=== PATIENT | male | born 1955 | race Caucasian/White ===

== ENCOUNTER → 2019-01-22 10:38 | Outpatient (CLI) | payer MEDICARE, SELFPAY ==
--- NOTE | 2019-01-22 10:42 | DI.RAD.S_ITS ---
PROCEDURE: XR CHEST 2V INDICATIONS: copd TECHNIQUE: 2 views of the chest were acquired. COMPARISON: [facility], CHEST 1 VIEW, 02/28/2016, 14:49. [facility], CHEST 2 VIEW, 01/24/2016, 2:36. FINDINGS: Surgical changes and devices: None. Lungs and pleura: Lungs are abnormal with large lung volumes and a chronic mild interstitial prominence stable over time. No pleural effusions or pneumothorax. Mediastinum: Mediastinal contours are normal. Heart size is normal. Bones and chest wall: No suspicious bony abnormalities. Soft tissues appear unremarkable. IMPRESSION: COPD, stable over time, presumed prior smoking history given the chronic mild interstitial prominence pattern present. Dictated by: Alex Culver M.D. on 01/22/2019 at 11:25 Approved by: Alex Culver M.D. on 01/22/2019 at 11:34
[2019-01-22 12:40] LABS: Alanine Aminotransferase 40 IU/L (21-72); Albumin 4.5 g/dL (3.5-5.0); Albumin Globulin Ratio 1.3 (1.0-2.8); Alkaline Phosphatase 102 U/L (38-126); Aspartate Aminotransferase 39 IU/L (17-59); Bilirubin Total 0.6 mg/dL (0.2-1.3); Blood Urea Nitrogen 20 mg/dL (9-20); Calcium 8.6 mg/dL (8.4-10.2); Carbon Dioxide 25 mmol/L (22-32); Chloride 100 mmol/L (98-107); Estimated Glomerular Filt Rate > 60.0 mL/min (>60); Globulin 3.6 g/dL (1.7-4.1); Glucose 90 mg/dL (80-110); Potassium 4.7 mmol/L (3.4-5.1); Sodium 136 mmol/L (137-145); Total Protein 8.1 g/dL (6.3-8.2)
[2019-01-22 12:43] LABS: B Type Natriuretic Peptide < 100 (<100)
[2019-01-22 12:44] LABS: HEMOLYSIS 131 (0-50)
== END ==
PROVIDERS: PCP Internal Medicine; Visit Provider Internal Medicine
DX: J44.9 Chronic obstructive pulmonary disease, unspecified (principal); Z68.36 Body mass index [BMI] 36.0-36.9, adult
CPT/HCPCS: 36415; 71046; 80053; 83880

== ENCOUNTER → 2020-05-05 10:30 | Outpatient (CLI) | payer MEDICARE, MEDICAID, SELFPAY ==
[2020-05-05 11:57] LABS: Alanine Aminotransferase 45 IU/L (<50); Albumin 4.3 g/dL (3.5-5.0); Albumin Globulin Ratio 1.3 (1.0-2.8); Alkaline Phosphatase 142 U/L (38-126); Aspartate Aminotransferase 45 IU/L (17-59); Bilirubin Total 0.7 mg/dL (0.2-1.3); Blood Urea Nitrogen 21 mg/dL (9-20); Carbon Dioxide 31 mmol/L (22-32); Chloride 100 mmol/L (98-107); Cholesterol 212 mg/dL (140-199); Estimated Glomerular Filt Rate > 60.0 mL/min (>60); Globulin 3.3 g/dL (1.7-4.1); Glucose 106 mg/dL (80-110); HDL Cholesterol 30 mg/dL (40-60); HEMOLYSIS < 15 (0-50); LDL Cholesterol Calculated 150 mg/dL (<100); Potassium 4.5 mmol/L (3.4-5.1); Sodium 138 mmol/L (137-145); Total Protein 7.6 g/dL (6.3-8.2); Triglycerides 159 mg/dL (35-150)
[2020-05-05 12:29] LABS: Prostate Specific Antigen Scrn 0.658 ng/mL (0.1-4.0)
== END ==
PROVIDERS: PCP Internal Medicine; Referring Provider Internal Medicine; Visit Provider Internal Medicine
DX: Z12.5 Encounter for screening for malignant neoplasm of prostate (principal); F17.200 Nicotine dependence, unspecified, uncomplicated; I10 Essential (primary) hypertension; J44.9 Chronic obstructive pulmonary disease, unspecified; M54.5 Low back pain; Z68.36 Body mass index [BMI] 36.0-36.9, adult
CPT/HCPCS: 36415; 80053; 80061; G0103

== ENCOUNTER 2020-07-21 12:10 | Inpatient (IN) | payer MEDICARE, MEDICAID, SELFPAY ==
[2020-07-21] VITALS (19 sets, daily range): BP systolic 127–229; BP diastolic 50–135; PULSE 96–122; RESP 20–45; TEMP 36.8–37; O2SAT 87–97; BMI 36.0
--- NOTE | 2020-07-21 12:35 | DI.RAD.S_ITS ---
PROCEDURE: XR CHEST 2V INDICATIONS: shortness of breath TECHNIQUE: 2 views of the chest were acquired. COMPARISON: [facility], , CHEST 1 VIEW, 02/28/2016, 14:49. [facility], , XR CHEST 2V, 01/22/2019, 10:43. FINDINGS: Surgical changes and devices: None. Lungs and pleura: Irregular opacity in the right lower lobe. Small right pleural effusion. No pneumothorax. Mediastinum: Mediastinal contours are not significantly changed. Heart size is unchanged. Bones and chest wall: No suspicious bony abnormalities. Soft tissues appear unremarkable. IMPRESSION: Right lower lobe airspace opacity most suspicious for pneumonia. Recommend follow-up to resolution. Small right pleural effusion. Dictated by: Dominguez Pulido M.D. on 07/21/2020 at 13:17 Approved by: Dominguez Pulido M.D. on 07/21/2020 at 13:19
--- NOTE | 2020-07-21 12:42 | PC.NURSE ---
placed on oxygen at 2l nc. sats 94percent
[2020-07-21 12:56] LABS: Add Manual Diff / Slide Review NO; Basophils Absolute Auto 100 /uL (0-100); Basophils Percent Auto 0.5 % (0-2); Eosinophils Absolute Auto 100 /uL (0-450); Eosinophils Percent Auto 1.4 % (2-4); Hematocrit 46.4 % (41-53); Hemoglobin 15.4 g/dL (13.5-17.5); Lymphocytes Absolute Auto 1200 /uL (1100-4500); Lymphocytes Percent Auto 12.4 % (25-40); Mean Corpuscular HGB Conc 33.2 % (30-36); Mean Corpuscular Hemoglobin 27.4 PG (26-34); Mean Corpuscular Volume 82.6 fL (80-100); Monocytes Absolute Auto 1000 /uL (0-900); Monocytes Percent Auto 9.6 % (3-14); Neutrophils Absolute Auto 7600 /uL (1500-7000); Neutrophils Percent Auto 76.1 % (50-75); Platelet Count 185 X10^3/uL (150-400); Red Blood Cell Count 5.61 X10^6/uL (4.5-5.9); Red Cell Distribution Width 16.1 % (11.6-14.8); White Blood Cell Count 9.9 X10^3/uL (4.5-11.0)
[2020-07-21 13:01] LABS: Lactate (Lactic Acid) 2.2 mmol/L (0.7-2.1)
[2020-07-21 13:01] LABS: COVID19 -Nasal RAPID Negative (Negative)
[2020-07-21 13:02] LABS: Alanine Aminotransferase 195 IU/L (<50); Albumin 3.9 g/dL (3.5-5.0); Alkaline Phosphatase 504 U/L (38-126); Aspartate Aminotransferase 166 IU/L (17-59); BUN Creatinine Ratio 23.5 (6-22); Bilirubin Total 1.4 mg/dL (0.2-1.3); Blood Urea Nitrogen 24 mg/dL (9-20); Calcium 9.3 mg/dL (8.4-10.2); Carbon Dioxide 29 mmol/L (22-32); Chloride 100 mmol/L (98-107); Estimated Glomerular Filt Rate > 60.0 mL/min (>60); Globulin 3.8 g/dL (1.7-4.1); Glucose 139 mg/dL (80-110); HEMOLYSIS < 15 (0-50); Potassium 4.5 mmol/L (3.4-5.1); Sodium 135 mmol/L (137-145); Total Protein 7.7 g/dL (6.3-8.2)
[2020-07-21] MEDS: ALBUTEROL 2.5 MG/3 ML NEB (ADULT) INH ×4 (13:15→22:15)
[2020-07-21] MEDS: methylPREDNISolone 125 MG/2 ML VIAL IV (13:20)
[2020-07-21 13:24] LABS: Creatine Kinase 94 U/L (55-170)
--- NOTE | 2020-07-21 13:36 | ED_ITS ---
HPI - SOB/Dyspnea General Chief Complaint: Shortness of Breath/Dyspnea Stated Complaint: COPD Time Seen by Provider: 07/21/20 12:52 Source: patient Mode of arrival: Family Vehicle Limitations: no limitations History of Present Illness HPI Narrative: Patient is a 64-year-old male history of COPD presenting with 8 days of increasing shortness of breath and chest tightness. He says it has progressively gotten worse he denies any fever or chills but does have productive cough. He feels like he cannot get a deep breath in he has been using his inhalers at home without any relief. MD Complaint: shortness of breath and cough Related Data Previous Rx's Medication Instructions Recorded albuterol sulfate 3 ml INH Q4HP PRN #120 ea 05/10/16 ibuprofen 600 mg PO TIDP PRN #150 tab 02/08/19 lisinopril 40 mg tablet 40 mg PO QDAY #90 tab 02/07/20 albuterol sulfate 90 mcg/actuation 2 puff INHALATION Q2-3H PRN #17 03/13/20 aerosol inhaler gram ipratropium 20 mcg-albuterol 100 2 puff INHALATION QID #12 gram 03/13/20 mcg/actuation mist for inhalation hydrocodone 5 mg-acetaminophen 325 1 - 2 tab PO Q4HP PRN #210 tab 05/01/ mg tablet Allergies Allergy/AdvReac Type Severity Reaction Status Date / Time No Known Drug Allergies Allergy Unknown Verified 07/21/20 12:39 [NO KNOWN DRUG ALLERGIES] Review of Systems Review of Systems ROS Unobtainable: All systems reviewed & are unremarkable except as noted in HPI and below Constitutional Constitutional: Reports body ache(s), Reports chills and Denies frequent falls ENT Ears, Nose, Mouth, and Throat: Denies dizziness Cardiovascular Cardiovascular: Reports as per HPI Respiratory Respiratory: Reports as per HPI Gastrointestinal Gastrointestinal: Denies abdominal pain, Denies change in bowel habits, Denies diarrhea, Denies nausea and Denies vomiting Musculoskeletal Musculoskeletal: Denies back pain, Denies myalgias and Denies numbness Integumentary/Breasts Skin/Breast: Denies pruritus, Denies erythema, Denies rash and Denies wounds Neurologic Neurologic: Denies behavioral changes, Denies confusion, Denies dizziness, Denies frequent falls and Denies numbness Psychiatric Psychiatric: Denies behavioral changes and Denies confusion 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) Low back pain without sciatica (Chronic 07/20/15) Lung cancer (Chronic) Right bundle branch block (Chronic) Family History Father Congestive heart failure Sister CAD (coronary artery disease) Social History marital status: number of children: 2 household members: none lives independently: Yes caregiver/support person: No housing: other (Trailer) pets and animals: Yes education level: middle school occupational status: other (Retired) current occupational exposures/hazards: No Previous occupational history: [employer] moe/sabianist: Shinto special moe needs: No leisure activities: other (Yard work) Smoking Status: Current every day smoker Tobacco: How many years used: 54 Smokeless tobacco user: other (Cigars) quit status: considering quitting (Has attempted to quit and hasnt worked.) second hand exposure: No alcohol intake: never substance use type: crack/cocaine (Started using in 30's. Off and on for 5-6 years) Smoking Status: Current every day smoker tobacco type: cigarettes alcohol intake frequency: 0-2 drinks per day Substance Use Type: does not use Exam Initial Vital Signs Initial Vital Signs: Vital Signs Temperature 98.6 F 07/21/20 12:35 Pulse Rate 117 H 07/21/20 12:35 Respiratory Rate 30 H 07/21/20 12:35 Blood Pressure 127/98 H 07/21/20 12:35 Pulse Oximetry 87 L 07/21/20 12:35 GENERAL: Overweight male in moderate respiratory distress and in no acute distress. HEENT: Head atraumatic,EOMI, pupils reactive, face symmetric, moist mucous membranes CARDIOVASCULAR: Regular rate and rhythm without murmurs, rubs or gallops. RESPIRATORY: Decreased breath sounds bilaterally tachypneic conversational dyspnea no wheezing rales or rhonchi ABDOMEN: Soft, nontender. Normoactive bowel sounds all 4 quadrants. No guarding or rebound. EXTREMITIES: Normal range of motion, no clubbing or edema. Neurovascularly intact NEUROLOGICAL: Alert and oriented x4.Normal gait and speech. Cranial nerves II through XII grossly intact. SKIN: Warm, dry, no laceration, no petechiae, no rashes or lesions. Course Orders Ordered: ED Orders 07/21/20 12:30 COVID19 -ED/INPAT/OR/L&D Stat 07/21/20 12:35 XR chest 2V Stat EKG-12 Lead Stat 07/21/20 12:45 Complete Blood Count AUTO DIFF Stat Comprehensive Metabolic Panel Stat Lactate (Lactic Acid) Stat NT-proBNP (BNP-Adult 18+) Stat Procalcitonin Stat Troponin & CK Cardiac Panel Stat 07/21/20 14:04 US abdomen limited Stat 07/21/20 14:13 EKG-12 Lead Stat 07/21/20 14:45 CT chest abd pel w con Stat 07/21/20 14:50 Sputum Culture Stat 07/21/20 16:07 Blood Culture Stat 07/21/20 17:11 Education, smoking cessation ONGOING RT Consult Eval and Treat Now 07/22/20 05:00 Basic Metabolic Panel Routine NT-proBNP (BNP-Adult 18+) Routine 07/22/20 08:00 EC echo doppler complete Urgent EKG-12 Lead DAILY 07/22/20 12:00 Troponin I Q8H 07/22/20 20:00 Troponin I Q8H Hydrocodone Bitart/Acetaminophen (Sula 5/325) 2 tab PO Q4H PRN PRN Reason: pain Hydrocodone Bitart/Acetaminophen (Sula 5/325) 1 tab PO Q4H PRN PRN Reason: pain in back Albuterol (Ventolin) 2.5 mg INH [id number] PRN PRN Reason: Shortness Of Breath Or Wheezing Enoxaparin Sodium (Lovenox) 40 mg SUBCUT DAILY MICHAEL Azithromycin 500 mg/ Dextrose 250 mls @ 250 mls/hr IV Q24H MICHAEL Ceftriaxone Sodium/Dextrose (Rocephin) 2 gm in 50 mls @ 100 mls/hr IV Q24H MICHAEL Sodium Chloride (Normal Saline 0.9%) 250 mls @ 21 mls/hr IV CONT MICHAEL Lisinopril (Zestril) 40 mg PO DAILY [facility] Magnesium Hydroxide (Milk Of Magnesia) 30 ml PO DAILY PRN PRN Reason: Constipation Methylprednisolone (Solu-Medrol 125 Mg Vial) 60 mg IV Q6HR MICHAEL Last Admin: 07/21/20 19:01 Dose: 60 mg Documented by: MELISSA Morphine Sulfate (Morphine) 2 mg IV Q5MIN PRN PRN Reason: Chest Pain Naloxone HCl (Narcan) 0.2 mg IV Q2MIN PRN PRN Reason: Opiate Reversal Nicotine (Nicoderm) 14 mg TOP DAILY [facility] Nitroglycerin (Nitrostat) 0.4 mg SL [id number] PRN PRN Reason: Chest Pain Nitroglycerin (Nitro-Bid) 1 inch TOP 0900,1500 [facility] Discontinued Medications Albuterol (Ventolin) 2.5 mg INH NOW ONE Stop: 07/21/20 13:12 Last Admin: 07/21/20 13:15 Dose: 2.5 mg Documented by: REN Albuterol/Ipratropium (Duoneb) 3 ml INH NOW ONE Stop: 07/21/20 14:47 Last Admin: 07/21/20 14:49 Dose: 3 ml Documented by: REN Aspirin (Aspirin Chew) 324 mg PO NOW ONE Stop: 07/21/20 14:05 Last Admin: 07/21/20 14:44 Dose: 324 mg Documented by: JASS Furosemide (Lasix) 40 mg IV NOW ONE Stop: 07/21/20 13:51 Last Admin: 07/21/20 14:43 Dose: 40 mg Documented by: JASS Ceftriaxone Sodium/Dextrose (Rocephin) 1 gm in 50 mls @ 100 mls/hr IV NOW ONE Stop: 07/21/20 14:03 Last Infusion: 07/21/20 16:16 Dose: 0 mls/hr Documented by: Admin: 07/21/20 14:54 Dose: 100 mls/hr Documented by: TRELL Azithromycin 500 mg/ Dextrose 250 mls @ 250 mls/hr IV NOW ONE Stop: 07/21/20 13:35 Last Infusion: 07/21/20 14:54 Dose: 0 mls/hr Documented by: Admin: 07/21/20 14:44 Dose: 250 mls/hr Documented by: JASS Ceftriaxone Sodium/Dextrose (Rocephin) 1 gm in 50 mls @ 100 mls/hr IV NOW ONE Stop: 07/21/20 18:14 Last Admin: 07/21/20 19:01 Dose: 100 mls/hr Documented by: MELISSA Ceftriaxone Sodium/Dextrose (Rocephin) 2 gm in 50 mls @ 100 mls/hr IV Q24H MICHAEL Last Admin: 07/21/20 18:08 Dose: Not Given Documented by: MELISSA Influenza Virus Vaccine (Flu Hd Vaccine) 0.7 ml IM .ONCE ONE Stop: 07/21/20 18:27 Methylprednisolone (Solu-Medrol 125 Mg Vial) 125 mg IV NOW ONE Stop: 07/21/20 13:15 Last Admin: 07/21/20 13:20 Dose: 125 mg Documented by: JASS Vital Signs Vital signs: Vital Signs - 8 hr 07/21/20 12:35 07/21/20 12:48 07/21/20 13:02 Temperature 98.6 F Pulse Rate 117 H 104 H 107 H Respiratory Rate 30 H 36 H 32 H Blood Pressure 127/98 H Pulse Oximetry 87 L 95 95 07/21/20 13:30 07/21/20 13:55 07/21/20 13:59 Temperature Pulse Rate 101 H 99 H 99 H Respiratory Rate 35 H 40 H 36 H Blood Pressure 229/116 H 209/95 H Pulse Oximetry 94 96 95 07/21/20 14:00 07/21/20 14:30 07/21/20 14:56 Temperature Pulse Rate 98 H 96 H 105 H Respiratory Rate 38 H 34 H 36 H Blood Pressure 173/112 H Pulse Oximetry 95 95 97 07/21/20 15:00 07/21/20 15:28 07/21/20 15:30 Temperature Pulse Rate 112 H 110 H 106 H Respiratory Rate 45 H Blood Pressure 184/134 H 181/102 H 180/108 H Pulse Oximetry 94 93 94 07/21/20 15:48 07/21/20 16:00 07/21/20 16:01 Temperature Pulse Rate 105 H 100 H 100 H Respiratory Rate Blood Pressure 145/99 H 197/122 H Pulse Oximetry 93 94 94 MDM - SOB/Dyspnea Lab Data Attestation: I reviewed the patient's lab results. Result diagrams: 07/21/20 12:45 07/21/20 12:45 Labs: Lab Results 07/21/20 07/21/20 07/21/20 Range/Units 12:30 12:45 12:45 WBC 9.9 (4.5-11.0) X10^3/uL RBC 5.61 (4.5-5.9) X10^6/uL Hgb 15.4 (13.5-17.5) g/dL Hct 46.4 (41-53) % MCV 82.6 (80-100) fL MCH 27.4 (26-34) PG MCHC 33.2 (30-36) % RDW 16.1 H (11.6-14.8) % Plt Count 185 (150-400) X10^3/uL Neut % (Auto) 76.1 H (50-75) % Lymph % (Auto) 12.4 L (25-40) % [place] % (Auto) 9.6 (3-14) % Eos % (Auto) 1.4 L (2-4) % Baso % (Auto) 0.5 (0-2) % Neut # (Auto) 7600 H (3510-0138) /uL Lymph # (Auto) 1200 (8589-6424) /uL Will[place] # (Auto) 1000 H (0-900) /uL Eos # (Auto) 100 (0-450) /uL Baso # (Auto) 100 (0-100) /uL Sodium 135 L (137-145) mmol/L Potassium 4.5 (3.4-5.1) mmol/L Chloride 100 (98-107) mmol/L Carbon Dioxide 29 (22-32) mmol/L BUN 24 H (9-20) mg/dL Creatinine 1.02 (0.66-1.25) mg/dL Estimated GFR > 60.0 (>60) mL/min BUN/Creatinine Ratio 23.5 H (6-22) Glucose 139 H (80-110) mg/dL Lactate (0.7-2.1) mmol/L Calcium 9.3 (8.4-10.2) mg/dL Total Bilirubin 1.4 H (0.2-1.3) mg/dL AST 166 H (17-59) IU/L ALT 195 H (<50) IU/L Alkaline Phosphatase 504 H (38-126) U/L Total Creatine Kinase (55-170) U/L CK-MB (CK-2) CK-MB (CK-2) Rel Index Troponin I (0.01-0.034) ng/mL NT-Pro-B Natriuret Pep (<125) pg/mL Total Protein 7.7 (6.3-8.2) g/dL Albumin 3.9 (3.5-5.0) g/dL Globulin 3.8 (1.7-4.1) g/dL Albumin/Globulin Ratio 1.0 (1.0-2.8) Procalcitonin (<0.5) ng/mL COVID-19 PCR Negative (Negative) 07/21/20 07/21/20 07/21/20 Range/Units 12:45 12:45 12:45 WBC (4.5-11.0) X10^3/uL RBC (4.5-5.9) X10^6/uL Hgb (13.5-17.5) g/dL Hct (41-53) % MCV (80-100) fL MCH (26-34) PG MCHC (30-36) % RDW (11.6-14.8) % Plt Count (150-400) X10^3/uL Neut % (Auto) (50-75) % Lymph % (Auto) (25-40) % [place] % (Auto) (3-14) % Eos % (Auto) (2-4) % Baso % (Auto) (0-2) % Neut # (Auto) (6489-2235) /uL Lymph # (Auto) (8184-7757) /uL [place] # (Auto) (0-900) /uL Eos # (Auto) (0-450) /uL Baso # (Auto) (0-100) /uL Sodium (137-145) mmol/L Potassium (3.4-5.1) mmol/L Chloride (98-107) mmol/L Carbon Dioxide (22-32) mmol/L BUN (9-20) mg/dL Creatinine (0.66-1.25) mg/dL Estimated GFR (>60) mL/min BUN/Creatinine Ratio (6-22) Glucose (80-110) mg/dL Lactate 2.2 H (0.7-2.1) mmol/L Calcium (8.4-10.2) mg/dL Total Bilirubin (0.2-1.3) mg/dL AST (17-59) IU/L ALT (<50) IU/L Alkaline Phosphatase (38-126) U/L Total Creatine Kinase 94 (55-170) U/L CK-MB (CK-2) TNP CK-MB (CK-2) Rel Index TNP Troponin I 0.154 H* (0.01-0.034) ng/mL NT-Pro-B Natriuret Pep 1710 H (<125) pg/mL Total Protein (6.3-8.2) g/dL Albumin (3.5-5.0) g/dL Globulin (1.7-4.1) g/dL Albumin/Globulin Ratio (1.0-2.8) Procalcitonin 0.83 H (<0.5) ng/mL COVID-19 PCR (Negative) 07/21/20 Range/Units 15:00 WBC (4.5-11.0) X10^3/uL RBC (4.5-5.9) X10^6/uL Hgb (13.5-17.5) g/dL Hct (41-53) % MCV (80-100) fL MCH (26-34) PG MCHC (30-36) % RDW (11.6-14.8) % Plt Count (150-400) X10^3/uL Neut % (Auto) (50-75) % Lymph % (Auto) (25-40) % [place] % (Auto) (3-14) % Eos % (Auto) (2-4) % Baso % (Auto) (0-2) % Neut # (Auto) (9206-8146) /uL Lymph # (Auto) (7120-1706) /uL [place] # (Auto) (0-900) /uL Eos # (Auto) (0-450) /uL Baso # (Auto) (0-100) /uL Sodium (137-145) mmol/L Potassium (3.4-5.1) mmol/L Chloride (98-107) mmol/L Carbon Dioxide (22-32) mmol/L BUN (9-20) mg/dL Creatinine (0.66-1.25) mg/dL Estimated GFR (>60) mL/min BUN/Creatinine Ratio (6-22) Glucose (80-110) mg/dL Lactate 2.4 H (0.7-2.1) mmol/L Calcium (8.4-10.2) mg/dL Total Bilirubin (0.2-1.3) mg/dL AST (17-59) IU/L ALT (<50) IU/L Alkaline Phosphatase (38-126) U/L Total Creatine Kinase (55-170) U/L CK-MB (CK-2) CK-MB (CK-2) Rel Index Troponin I (0.01-0.034) ng/mL NT-Pro-B Natriuret Pep (<125) pg/mL Total Protein (6.3-8.2) g/dL Albumin (3.5-5.0) g/dL Globulin (1.7-4.1) g/dL Albumin/Globulin Ratio (1.0-2.8) Procalcitonin (<0.5) ng/mL COVID-19 PCR (Negative) Imaging Data Chest x-ray: Radiologist's Impression: PROCEDURE: XR CHEST 2V INDICATIONS: shortness of breath TECHNIQUE: 2 views of the chest were acquired. COMPARISON: [facility], , CHEST 1 VIEW, 02/28/2016, 14:49. [facility], , XR CHEST 2V, 01/22/2019, 10:43. FINDINGS: Surgical changes and devices: None. Lungs and pleura: Irregular opacity in the right lower lobe. Small right pleural effusion. No pneumothorax. Mediastinum: Mediastinal contours are not significantly changed. Heart size is unchanged. Bones and chest wall: No suspicious bony abnormalities. Soft tissues appear unremarkable. IMPRESSION: Right lower lobe airspace opacity most suspicious for pneumonia. Recommend follow-up to resolution. Small right pleural effusion. Dictated by: Dominguez Pulido M.D. on 07/21/2020 at 13:17 Approved by: Dominguez Pulido M.D. on 07/21/2020 at 13:19 US - abdomen: Radiologist's Impression: PROCEDURE: US ABDOMEN LIMITED INDICATIONS: ELEVATED LIVER ENZYMES TECHNIQUE: Real-time focused scanning was performed of the abdomen, with image documentation. COMPARISON: None. FINDINGS: Innumerable liver masses are present, all with heterogenous but predominantly hypoechoic attenuation. Numerous nodules demonstrated target sign. Overall findings are highly suspicious for metastatic disease. Gallbladder is grossly unremarkable. Incidentally imaged portions of the right kidney are within normal limits. IMPRESSION: Innumerable hepatic masses which are almost certainly metastatic. CT chest/abdomen/pelvis is recommended. Dictated by: Jigar Thompson M.D. on 07/21/2020 at 15:07 Approved by: Jigar Thompson M.D. on 07/21/2020 at 15:08 CT scan - abdomen/pelvis: Radiologist's Impression: PROCEDURE: CT CHEST ABD PEL W CON INDICATIONS: mass in liver with sob TECHNIQUE: After the administration of intravenous contrast, 5 mm thick sections acquired from the lung apices to the symphysis. 5 mm coronal and sagittal reformats were performed, with additional 7 mm MIP reformats through the lungs. For radiation dose reduction, the following was used: automated exposure control, adjustment of mA and/or kV according to patient size. COMPARISON: None. FINDINGS: Image quality: Excellent. CHEST: Lungs and pleura: A large right perihilar mass is seen that is difficult to tiffany sure due to its shape but spans an area measuring approximately 7.1 x 6.1 x 6.9 cm, with involvement of the right lower and right middle lobes and likely a portion of the right upper lobe. The mass is encasing and the right pulmonary arteries and bronchi without definite obstruction. There is a small right pleural effusion. Mild nodularity is seen along the pleural margin at the right lung base, and pleural metastatic disease is not excluded. There is moderate to severe centrilobular and paraseptal emphysema in the lung apices bilaterally. No pneumothorax. Mediastinum: The right lung mass is confluent with right hilar lymphadenopathy. A subcarinal lymph node measures 3.2 cm in short axis diameter. Right pretracheal lymph nodes measure up to 1.7 cm in short axis diameter. No contralateral mediastinal or hilar lymph nodes are seen. Heart size is normal. No pericardial effusion. Mild aortic and coronary artery atherosclerotic calcifications are present. Thoracic aorta and central pulmonary arteries are normal in size. Esophagus is normal in caliber. No hiatal hernia. Chest wall: No axillary or supraclavicular adenopathy by size criteria. Thyroid gland appears normal. ABDOMEN: Solid organs: Multiple large ill-defined hypoattenuating masses are seen throughout both lobes of the liver, which is suspicious for hepatic metastatic disease. There is mild right posterior intrahepatic biliary ductal dilatation. The gallbladder and extrahepatic biliary ducts are normal in size. Pancreas enhances normally. Spleen is normal in size and enhancement. Evaluation of the adrenals is mildly compromised by respiratory motion, but no definite nodule is seen. Kidneys demonstrate normal size and enhancement, without hydronephrosis. Peritoneum and bowel: Multiple diverticula are seen in the sigmoid colon. There are no signs of bowel obstruction. No free fluid or air. Nodes and vessels: An upper abdominal lymph node measures 1.3 cm in short axis diameter (image 70 of series 2). A precaval lymph node measures 2.6 cm in short axis diameter (image 80 of series 2). No retroperitoneal or mesenteric adenopathy by size criteria. Aorta and inferior vena cava are normal in size. Moderate atherosclerotic calcifications are seen in the abdominal aorta. Miscellaneous: No ventral hernias. PELVIS: Genitourinary: Bladder wall thickness is normal. Miscellaneous: No inguinal hernias or adenopathy. Bones: No suspicious bony lesions. No vertebral body compression fractures. Mild degenerative changes are seen in the spine. There is grade 1 anterolisthesis of L4 on L5. IMPRESSION: 1. Large right perihilar pulmonary mass is suspicious for a primary lung malignancy. 2. Small right pleural effusion with possible mild pleural nodularity is suspicious for a possible malignant effusion and/or pleural metastatic disease. 2. Enlarged right hilar and right mediastinal lymph nodes most likely represent geetha metastatic disease. A few additional enlarged lymph nodes are seen in the upper abdomen that may also represent metastases. 3. Multiple large hypoattenuating masses at throughout the liver are suspicious for hepatic metastatic disease. 4. Moderate to severe centrilobular and paraseptal emphysema. Dictated by: Danny Tilley M.D. on 07/21/2020 at 15:23 ECG Data Attestation: I personally reviewed and interpreted this ECG as follows: Prior ECG tracings: available for review Interpretation: EKG 1. Sinus tachycardia rate 107 p.r. interval 143 QRS [address] changes bundle-branch block noted similar to previous EKG in 2016 EKG 2. Sinus tachycardia rate 6 year 38 QRS [address] changes PACs noted similar to previous EKG MDM Narrative Medical decision making narrative: Patient initially quite dyspneic he is given albuterol nebulizers stack. Improved slightly with the nebulizer. BNP also slightly elevated along with liver enzymes and bilirubin. He is given a dose of Lasix possible CHF as well. He has no right upper quadrant pain however with elevated bilirubin and liver enzymes possible congestion from CHF but ultrasound does actually show liver masses. At that point decision to do chest abdomen pelvis CT. Which does confirm likely primary pulmonary malignancy with metas tatic disease. Patient is also found to have a positive troponin with and STEMI no EKG changes. He is given aspirin. He also has an elevated procalcitonin and likely COPD exacerbation is given Rocephin and Zithromax. Sputum culture is sent unfortunately antibiotics were given prior to blood cultures. He overall does not appear grossly septic he is afebrile. Dr. Bolivar happily accept patient I have discussed with patient findings of CT and other all laboratory findings. Discharge Plan Departure Patient Disposition: Admitted As Inpatient Clinical Impression: COPD exacerbation, Acute non-ST elevation myocardial infarction (NSTEMI), Lung mass Discharge Date/Time: 07/21/20 16:50 Referrals: Rashaad Bolivar MD [Primary Care Provider] - Admit Date/Time: 07/21/20 16:28 Admit Provider: Rashaad Bolivar
[2020-07-21 13:37] LABS: NT-proBNP (BNP-Adult 18+) 1710 pg/mL (<125)
--- NOTE | 2020-07-21 14:04 | DI.US.S_ITS ---
PROCEDURE: US ABDOMEN LIMITED INDICATIONS: ELEVATED LIVER ENZYMES TECHNIQUE: Real-time focused scanning was performed of the abdomen, with image documentation. COMPARISON: None. FINDINGS: Innumerable liver masses are present, all with heterogenous but predominantly hypoechoic attenuation. Numerous nodules demonstrated target sign. Overall findings are highly suspicious for metastatic disease. Gallbladder is grossly unremarkable. Incidentally imaged portions of the right kidney are within normal limits. IMPRESSION: Innumerable hepatic masses which are almost certainly metastatic. CT chest/abdomen/pelvis is recommended. Dictated by: Jigar Thompson M.D. on 07/21/2020 at 15:07 Approved by: Jigra Thompson M.D. on 07/21/2020 at 15:08
[2020-07-21] MEDS: FUROSEMIDE 40 MG/4 ML VIAL IV (14:43)
[2020-07-21] MEDS: AZITHROMYCIN 500 MG in DEXTROSE 5% IN WATER 250 ML IV (14:44)
[2020-07-21] MEDS: ASPIRIN 81 MG CHEW TAB 324 MG PO (14:44)
--- NOTE | 2020-07-21 14:45 | DI.CT.S_ITS ---
PROCEDURE: CT CHEST ABD PEL W CON INDICATIONS: mass in liver with sob TECHNIQUE: After the administration of intravenous contrast, 5 mm thick sections acquired from the lung apices to the symphysis. 5 mm coronal and sagittal reformats were performed, with additional 7 mm MIP reformats through the lungs. For radiation dose reduction, the following was used: automated exposure control, adjustment of mA and/or kV according to patient size. COMPARISON: None. FINDINGS: Image quality: Excellent. CHEST: Lungs and pleura: A large right perihilar mass is seen that is difficult to measure due to its shape but spans an area measuring approximately 7.1 x 6.1 x 6.9 cm, with involvement of the right lower and right middle lobes and likely a portion of the right upper lobe. The mass is encasing and the right pulmonary arteries and bronchi without definite obstruction. There is a small right pleural effusion. Mild nodularity is seen along the pleural margin at the right lung base, and pleural metastatic disease is not excluded. There is moderate to severe centrilobular and paraseptal emphysema in the lung apices bilaterally. No pneumothorax. Mediastinum: The right lung mass is confluent with right hilar lymphadenopathy. A subcarinal lymph node measures 3.2 cm in short axis diameter. Right pretracheal lymph nodes measure up to 1.7 cm in short axis diameter. No contralateral mediastinal or hilar lymph nodes are seen. Heart size is normal. No pericardial effusion. Mild aortic and coronary artery atherosclerotic calcifications are present. Thoracic aorta and central pulmonary arteries are normal in size. Esophagus is normal in caliber. No hiatal hernia. Chest wall: No axillary or supraclavicular adenopathy by size criteria. Thyroid gland appears normal. ABDOMEN: Solid organs: Multiple large ill-defined hypoattenuating masses are seen throughout both lobes of the liver, which is suspicious for hepatic metastatic disease. There is mild right posterior intrahepatic biliary ductal dilatation. The gallbladder and extrahepatic biliary ducts are normal in size. Pancreas enhances normally. Spleen is normal in size and enhancement. Evaluation of the adrenals is mildly compromised by respiratory motion, but no definite nodule is seen. Kidneys demonstrate normal size and enhancement, without hydronephrosis. Peritoneum and bowel: Multiple diverticula are seen in the sigmoid colon. There are no signs of bowel obstruction. No free fluid or air. Nodes and vessels: An upper abdominal lymph node measures 1.3 cm in short axis diameter (image 70 of series 2). A precaval lymph node measures 2.6 cm in short axis diameter (image 80 of series 2). No retroperitoneal or mesenteric adenopathy by size criteria. Aorta and inferior vena cava are normal in size. Moderate atherosclerotic calcifications are seen in the abdominal aorta. Miscellaneous: No ventral hernias. PELVIS: Genitourinary: Bladder wall thickness is normal. Miscellaneous: No inguinal hernias or adenopathy. Bones: No suspicious bony lesions. No vertebral body compression fractures. Mild degenerative changes are seen in the spine. There is grade 1 anterolisthesis of L4 on L5. IMPRESSION: 1. Large right perihilar pulmonary mass is suspicious for a primary lung malignancy. 2. Small right pleural effusion with possible mild pleural nodularity is suspicious for a possible malignant effusion and/or pleural metastatic disease. 2. Enlarged right hilar and right mediastinal lymph nodes most likely represent geetha metastatic disease. A few additional enlarged lymph nodes are seen in the upper abdomen that may also represent metastases. 3. Multiple large hypoattenuating masses at throughout the liver are suspicious for hepatic metastatic disease. 4. Moderate to severe centrilobular and paraseptal emphysema. Dictated by: Danny Tilley M.D. on 07/21/2020 at 15:23 Approved by: Danny Tilley M.D. on 07/21/2020 at 15:43
[2020-07-21 14:48] LABS: Reflexed Lactate in 2 Hours Y
[2020-07-21] MEDS: ALBUTEROL/IPRATROPIUM 3 ML AMPUL INH ×2 (14:49→22:15)
[2020-07-21] MEDS: CEFTRIAXONE 1 GM/50 ML FROZ.PIGGY IV ×2 (14:54→19:01)
[2020-07-21 15:03] LABS: Procalcitonin 0.83 ng/mL (<0.5)
[2020-07-21 15:19] LABS: Lactate 2HR (Lactic Acid Rflx) 2.4 mmol/L (0.7-2.1)
--- NOTE | 2020-07-21 17:16 | PM.HP.1 ---
History of Present Illness History of Present Illness Date Patient Seen: 07/21/20 Time Patient Seen: 17:16 Chief complaint: COPD Narrative: 64-year-old male admitted by the emergency department with shortness of breath Patient reports 7-8 days of increasing difficulty breathing or shortness of breath. Patient with longstanding severe COPD who also is an active smoker. He reports increased symptoms of shortness of breath without fever chills increased sputum. No palpitations chest pain syncope near-syncope. Does report some increased abdominal symptoms particularly right-sided symptoms in the right upper abdomen. He finally decided today he could wait no longer and came to the ER for evaluation In the ER he was found to be hypoxic on room air. Blood work showed elevations of LFTs and subsequent CT imaging showed evidence of a large right perihilar pulmonary mass as well as multiple large masses within the liver suspicious for metastatic disease. Patient also with small right pleural effusion and evidence of nodularity on the pleura consistent with pleural metastatic disease and probable malignant effusion. Patient also with enlarged right hilar and mediastinal lymph nodes as well as perhaps some enlarged lymph nodes in the upper abdomen consistent with metastatic disease. Patient also showed severe centrilobular and paraseptal emphysema Patient also found to have an elevated lactate procalcitonin BNP. Admitted for treatment of presumed possible pneumonia as well as COPD exacerbation as well as possible acute congestive heart failure. Troponin also borderline elevated consistent with non ST elevation SC. ECG unchanged from previous showing old right bundle branch block. 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) Low back pain without sciatica (Chronic 07/20/15) Lung cancer (Chronic) Right bundle branch block (Chronic) Family & Social History Family History Father Congestive heart failure Sister CAD (coronary artery disease) Social History: lives independently Yes caregiver/support person No Safety & Behavioral: Feels Safe in Current Yes Environment Been Physically Hurt or No Threatened By a Person Tobacco & Substance use: Smoking Status Current every day smoker alcohol intake never alcohol intake frequency 0-2 drinks per day Substance Use Type does not use Meds Home Medications and Allergies Home Medications Medication Instructions Recorded Confirmed Type albuterol sulfate 3 ml INH Q4HP PRN #120 ea 05/10/16 05/01/20 Rx sildenafil [Viagra] 50 - 100 mg PO QDAYP PRN #5 tab 05/24/16 05/01/20 Rx ibuprofen 600 mg PO TIDP PRN #150 tab 02/08/19 05/01/20 Rx lisinopril 40 mg tablet 40 mg PO QDAY #90 tab 02/07/20 05/01/20 Rx albuterol sulfate 90 mcg/actuation 2 puff INHALATION Q2-3H PRN #17 03/13/20 05/01/20 Rx aerosol inhaler gram ipratropium 20 mcg-albuterol 100 2 puff INHALATION QID #12 gram 03/13/20 05/01/20 Rx mcg/actuation mist for inhalation hydrocodone 5 mg-acetaminophen 325 1 - 2 tab PO Q4HP PRN #210 tab 05/01/20 05/01/20 Rx mg tablet hydrocodone 5 mg-acetaminophen 325 See Rx Instructions PO Q4H PRN 05/01/20 05/01/20 Rx mg tablet #210 tab hydrocodone 5 mg-acetaminophen 325 See Rx Instructions PO Q4H PRN 05/01/20 05/01/20 Rx mg tablet #210 tab Allergies Allergy/AdvReac Type Severity Reaction Status Date / Time No Known Drug Allergies Allergy Unknown Verified 07/21/20 12:39 [NO KNOWN DRUG ALLERGIES] Review of Systems Constitutional Constitutional: Denies excessive sweating, Denies fever(s), Denies headache(s), Denies weakness, Reports weight gain and Denies weight loss Eyes Eyes: Denies change in vision, Denies itchy eyes, Denies loss of vision and Denies other visual disturbances ENT Ears, Nose, Mouth, and Throat: No change in voice, No dysphagia, No dizziness, No otalgia, No headache(s), No hoarseness, No lip swelling, No neck pain, No sore throat, No throat swelling and No tongue swelling Cardiovascular Cardiovascular: Denies chest pain, Denies syncope, Denies rapid heart rate, Denies irregular heart rhythm, Denies palpitations, Reports dyspnea, Reports dyspnea on exertion and Denies slow heart rate Respiratory Respiratory: Reports chest congestion, Reports cough, Denies hemoptysis, Reports dyspnea, Reports dyspnea on exertion, Denies stridor and Reports wheezing Gastrointestinal Gastrointestinal: Reports abdominal pain (Right upper quadrant), Reports bloating, Denies change in bowel habits, Denies change in stool character, Denies dysphagia, Denies nausea, Denies vomiting and Denies hematemesis Genitourinary Genitourinary: Denies hematuria, Denies difficulty urinating and Denies urinary frequency Musculoskeletal Musculoskeletal: Denies abnormal gait, Denies myalgias, Denies arthralgias, Denies limited range of motion and Denies neck pain Integumentary/Breasts Skin/Breast: Denies bleeding lesions, Denies change in pigmentation, Denies changing lesions, Denies new lesions, Denies rash, Denies skin swelling, Denies sores and Denies jaundice Neurologic Neurologic: Denies abnormal speech, Denies abnormal gait, Denies behavioral changes, Denies confusion, Denies dizziness, Denies syncope, Denies headache(s), Denies loss of vision, Denies memory loss, Denies seizure-like activity, Denies paresthesias and Denies weakness Psychiatric Psychiatric: Denies behavioral changes, Denies change in appetite, Denies confusion, Denies difficulty concentrating, Denies auditory hallucinations, Denies memory loss, Denies mood swings and Denies suicidal ideation Endocrine Endocrine: Denies excessive sweating, Denies flushing, Denies polyuria and Denies palpitations Hematologic/Lymphatic Hematologic/Lymphatic: Denies easy bleeding, Denies easy bruising and Denies lymphadenopathy Allergic/Immunologic Allergic/Immunologic: Denies urticaria, Denies itchy eyes, Denies lip swelling, Denies throat swelling, Denies tongue swelling and Reports wheezing Exam Vital Signs (past 8 hours): - 07/21/20 12:35 07/21/20 12:48 07/21/20 13:02 Temperature 98.6 F Pulse Rate 117 H 104 H 107 H Respiratory Rate 30 H 36 H 32 H Blood Pressure 127/98 H Pulse Oximetry 87 L 95 95 07/21/20 13:30 07/21/20 13:55 07/21/20 13:59 Temperature Pulse Rate 101 H 99 H 99 H Respiratory Rate 35 H 40 H 36 H Blood Pressure 229/116 H 209/95 H Pulse Oximetry 94 96 95 07/21/20 14:00 07/21/20 14:30 07/21/20 14:56 Temperature Pulse Rate 98 H 96 H 105 H Respiratory Rate 38 H 34 H 36 H Blood Pressure 173/112 H Pulse Oximetry 95 95 97 07/21/20 15:00 07/21/20 15:28 07/21/20 15:30 Temperature Pulse Rate 112 H 110 H 106 H Respiratory Rate 45 H Blood Pressure 184/134 H 181/102 H 180/108 H Pulse Oximetry 94 93 94 07/21/20 15:48 07/21/20 16:00 07/21/20 16:01 Temperature Pulse Rate 105 H 100 H 100 H Respiratory Rate Blood Pressure 145/99 H 197/122 H Pulse Oximetry 93 94 94 07/21/20 16:30 07/21/20 16:31 Temperature Pulse Rate 117 H 121 H Respiratory Rate Blood Pressure 208/135 H Pulse Oximetry 93 93 Oxygen Delivery Method Nasal Cannula Oxygen Flow Rate 2 Narrative Exam Narrative: Obese male who looks much older than his stated age lying in hospital bed with some mild obvious respiratory distress HEENT-normocephalic atraumatic PERRLA EOMs intact Neck-no lymphadenopathy Lungs-very diminished breath sounds but no wheezes or crackles. Heart-tachycardic regular rate and rhythm no murmur Abdomen-obese and distended positive bowel tones no rebound or guarding. Unable to determine if organomegaly is present due to size of abdomen Extremities-1+ edema at the ankles bilaterally Neuro-alert orient x3, no focal defects to screening exam, gait not tested Objective ECG Impression: Old right bundle branch block without acute change Imaging CT scan - chest: Radiologist's impression: IMPRESSION: 1. Large right perihilar pulmonary mass is suspicious for a primary lung malignancy. 2. Small right pleural effusion with possible mild pleural nodularity is suspicious for a possible malignant effusion and/or pleural metastatic disease. 2. Enlarged right hilar and right mediastinal lymph nodes most likely represent geetha metastatic disease. A few additional enlarged lymph nodes are seen in the upper abdomen that may also represent metastases. 3. Multiple large hypoattenuating masses at throughout the liver are suspicious for hepatic metastatic disease. 4. Moderate to severe centrilobular and paraseptal emphysema. Labs Result Diagrams: 07/21/20 12:45 07/21/20 12:45 Labs: Laboratory Results - last 24 hr 07/21/20 07/21/20 07/21/20 12:30 12:45 12:45 WBC 9.9 RBC 5.61 Hgb 15.4 Hct 46.4 MCV 82.6 MCH 27.4 MCHC 33.2 RDW 16.1 H Plt Count 185 Neut % (Auto) 76.1 H Lymph % (Auto) 12.4 L [place] % (Auto) 9.6 Eos % (Auto) 1.4 L Baso % (Auto) 0.5 Neut # (Auto) 7600 H Lymph # (Auto) 1200 [place] # (Auto) 1000 H Eos # (Auto) 100 Baso # (Auto) 100 Sodium 135 L Potassium 4.5 Chloride 100 Carbon Dioxide 29 BUN 24 H Creatinine 1.02 Estimated GFR > 60.0 BUN/Creatinine Ratio 23.5 H Glucose 139 H Lactate Calcium 9.3 Total Bilirubin 1.4 H AST 166 H ALT 195 H Alkaline Phosphatase 504 H Total Creatine Kinase CK-MB (CK-2) CK-MB (CK-2) Rel Index Troponin I NT-Pro-B Natriuret Pep Total Protein 7.7 Albumin 3.9 Globulin 3.8 Albumin/Globulin Ratio 1.0 Procalcitonin COVID-19 PCR Negative 07/21/20 07/21/20 07/21/20 12:45 12:45 12:45 WBC RBC Hgb Hct MCV MCH MCHC RDW Plt Count Neut % (Auto) Lymph % (Auto) [place] % (Auto) Eos % (Auto) Baso % (Auto) Neut # (Auto) Lymph # (Auto) [place] # (Auto) Eos # (Auto) Baso # (Auto) Sodium Potassium Chloride Carbon Dioxide BUN Creatinine Estimated GFR BUN/Creatinine Ratio Glucose Lactate 2.2 H Calcium Total Bilirubin AST ALT Alkaline Phosphatase Total Creatine Kinase 94 CK-MB (CK-2) TNP CK-MB (CK-2) Rel Index TNP Troponin I 0.154 H* NT-Pro-B Natriuret Pep 1710 H Total Protein Albumin Globulin Albumin/Globulin Ratio Procalcitonin 0.83 H COVID-19 PCR 07/21/20 15:00 WBC RBC Hgb Hct MCV MCH MCHC RDW Plt Count Neut % (Auto) Lymph % (Auto) [place] % (Auto) Eos % (Auto) Baso % (Auto) Neut # (Auto) Lymph # (Auto) [place] # (Auto) Eos # (Auto) Baso # (Auto) Sodium Potassium Chloride Carbon Dioxide BUN Creatinine Estimated GFR BUN/Creatinine Ratio Glucose Lactate 2.4 H Calcium Total Bilirubin AST ALT Alkaline Phosphatase Total Creatine Kinase CK-MB (CK-2) CK-MB (CK-2) Rel Index Troponin I NT-Pro-B Natriuret Pep Total Protein Albumin Globulin Albumin/Globulin Ratio Procalcitonin COVID-19 PCR Assessment & Plan Assessment & Plan narrative: 1. COPD exacerbation with possible pneumonia-patient clearly with a COPD exacerbation and possible pneumonia. Will treat with IV steroids IV antibiotics frequent nebulizers oxygen as necessary although limiting this somewhat over concerns regarding chronic lung disease and possibility of respiratory suppression with excessive oxygen and loss of hypoxia. 2. Right lung mass-this almost certainly represents primary pulmonary carcinoma. Evidence of Mets in his liver his pleura and perhaps even into the abdominal space. Certainly not amenable to cure. Will need tissue sample for definitive diagnosis but will need to optimize respiratory status well before proceeding with that. Will need to see Oncology. Most of this can likely be done as an outpatient Discussed with patient at length that this is not curable disease likely will be fatal although depending on exact pathology exactly what kind of or type of cancer he has that may be very treatable but that is yet to be determined 3. Non ST-elevation SC-this is consistent with a possible type 2 myocardial infarction. I do believe this probably is demand ischemia. Continue with serial enzymes and EKGs. Not a candidate for intervention at this point. Nor does it seem necessary at this point. 4. Congestive heart failure-patient elevated BNP as well as increased respiratory distress. Will not aggressively treat given elevated lactate levels and possibility of sepsis but will obtain echocardiogram for evaluation of left ventricular function which would be important in the process of evaluating and treating his lung cancer as well 5. Chronic smoker-will use nicotine patch as necessary 6. History of illicit drug use including methamphetamine-patient reports no recent use but this certainly has been present. Observe for evidence of withdrawal effect although none apparent at the moment 7. VTE prophylaxis-Lovenox will be employed and is ordered. 8. Code status-had discussion patient specially given his new diagnosis of incurable malignancy. In the event of a sudden cardiac or respiratory arrest he would not want to try to be resuscitated. His view was it be prolonging the inevitable. That is probably accurate and he will be made no code for the purposes this hospitalization Patient clearly deserves inpatient hospitalization given his multiple medical issues as above as well as his significant respiratory distress. He will likely be in the hospital greater than 48 hours which will include 2 separate midnights. COVID-19 COVID-19 status: Negative
[2020-07-21] MEDS: methylPREDNISolone 125 MG/2 ML VIAL 60 MG IV (19:01)
[2020-07-21] MEDS: SODIUM CHLORIDE 0.9% 250 ML 21 ML IV (19:18)
[2020-07-21] MEDS: dilTIAZem CD 180 MG CAP PO (22:59)
[2020-07-21 23:51] LABS: Troponin I 0.358 ng/mL (0.01-0.034)
[2020-07-22] VITALS (18 sets, daily range): BP systolic 127–163; BP diastolic 50–101; PULSE 78–111; RESP 16–40; TEMP 36.4–36.9; O2SAT 87–96
[2020-07-22] MEDS: ALBUTEROL 2.5 MG/3 ML NEB (ADULT) INH ×2 (00:06→21:01)
[2020-07-22] MEDS: methylPREDNISolone 125 MG/2 ML VIAL 60 MG IV ×5 (00:56→23:35)
[2020-07-22] MEDS: LORazepam 2 MG/ML INJ 1 MG IV ×2 (00:56→02:08)
--- NOTE | 2020-07-22 03:32 | PC.NURSE ---
2300 Received safe hand-off report. The patient is short of breath and has frequent coughing fits; respiration rate at 36 and oxygen saturation 93% on 2LPM. 0000 Received call from lab to inform of increased troponin level. Patient assessed, denies pain of any kind. C/O being really tired and just wants to try to sleep but can't sleep. The patient is still short of breath with respiration rate of 40 and oxygen saturation at 93%. Telemetry reading at Sinus Tachy with BBB, and frequent PACs. RT administered albuterol treatment, but afterwards informed me that the patient feels he gets no relief from the albuterol treatments. RT further stated she feels his SOB may be cardiac-related. [id number] Nix regarding above information. Received verbal order for Ativan 1-4mg Q1H PRN for anxiety and air-hunger. No further action is needed, other than comfort care. The patient is DNR and it was discussed earlier with Dr. Bolivar and patient that cardiac treatment for NON-STEMI/transfer to [facility] was not an option. [id number] Administered 1mg Ativan IV, and assessed 30 minutes later. Patient did not feel it was helping him relax. Informed patient we will wait until the 1h elver from administration of Ativan before deciding if he wants to try a second, increased dose of 2mg. After 1h elver, the patient wished to try 2mg of Ativan because he did not feel 1mg helped. 0315 Patient attempted to urinate in bedside commode, but didn't make it; he urinated on himself and the floor. Upon providing clean-up care, the patient had a small bowel incontinence episode in the bed. When asked if he felt like he needed to have a BM, he said no and wasn't aware that he was having a BM on the bed. Patient was cleaned again and padding was changed. Pt repositioned in bed for comfort, assessed vitals and left to rest. Coughing fits are less frequent, and heart rate has come down to the 90's. 0350 The patient is asleep in bed. No s/sx of distress.
[2020-07-22 05:18] LABS: BUN Creatinine Ratio 24.6 (6-22); Blood Urea Nitrogen 34 mg/dL (9-20); Calcium 9.3 mg/dL (8.4-10.2); Carbon Dioxide 27 mmol/L (22-32); Chloride 98 mmol/L (98-107); Estimated Glomerular Filt Rate 51.6 mL/min (>60); Glucose 166 mg/dL (80-110); HEMOLYSIS < 15 (0-50); Potassium 4.5 mmol/L (3.4-5.1); Sodium 134 mmol/L (137-145)
[2020-07-22 05:26] LABS: NT-proBNP (BNP-Adult 18+) 1850 pg/mL (<125)
--- NOTE | 2020-07-22 07:55 | PM.PN.1 ---
Subjective Subjective Date Patient Seen: 07/22/20 Time Patient Seen: 07:55 Interval history: Patient had a difficult night, received multiple nurse calls regarding an unstable rhythm and worsening respiratory status. He did go into new onset atrial fibrillation that resolved after diltiazem XR 180 mg p.o. x1. He has been hypertensive but did not receive his usual lisinopril and that will be administered to him this morning. He also remained in respiratory distress for half of the night despite multiple breathing treatments. He was then given Ativan and was able to rest. This morning, he denies chest pain but continues in mild respiratory distress. He has been receiving small volume nebulizers per RT, they are asking for 5 mg dosing. Does have an appetite and is eating everything. Denies nausea or vomiting. Afebrile this morning. He has been up to ambulate to the bathroom/commode with assistance from nursing. On 2 L of oxygen. Exam Vital Signs (past 8 hours): - 07/22/20 00:06 07/22/20 00:07 07/22/20 00:16 Temperature 98.1 F Pulse Rate 100 H 111 H 98 H Respiratory Rate 20 36 H 16 Blood Pressure 134/90 161/97 H Pulse Oximetry 94 93 92 07/22/20 01:56 07/22/20 03:27 07/22/20 03:29 Temperature Pulse Rate 96 H 96 H Respiratory Rate 40 H 36 H Blood Pressure 163/101 H 143/95 H Pulse Oximetry 07/22/20 04:29 Temperature 98.4 F Pulse Rate 87 Respiratory Rate 18 Blood Pressure 142/78 H Pulse Oximetry 90 L Oxygen Delivery Method Nasal Cannula Oxygen Flow Rate 2 Narrative Exam Narrative: GENERAL: Alert and oriented, appearing older than stated age and in no acute distress. HEENT: Head normocephalic/atraumatic. Pupils equal, round, and reactive to light and accomodation. Extraocular muscles intact. Tympanic membranes clear. Nasal mucosa moist, septum midline. Oral mucosa moist, no lesions. Neck soft and supple, no lymphadenopathy. LUNGS: Diminished inspiratory effort, very little air movement at all. Harsh expiratory wheezing with cough. CV: Normal S1 and S2 with regular rate and rhythm, no audible murmurs, rubs or gallops. ABDOMEN: Soft, non-tender, non-distended, no organomegaly. Positive bowel sounds. EXTREMITIES: No clubbing, cyanosis, or edema. NEURO: Cranial nerves II through XII grossly intact, no focal deficits. PSYCH: Alert and oriented x 3. SKIN: No concerning lesions. Objective Labs Result Diagrams: 07/21/20 12:45 07/22/20 04:47 Labs: Laboratory Results - last 24 hr 07/21/20 07/21/20 07/21/20 12:30 12:45 12:45 WBC 9.9 RBC 5.61 Hgb 15.4 Hct 46.4 MCV 82.6 MCH 27.4 MCHC 33.2 RDW 16.1 H Plt Count 185 Neut % (Auto) 76.1 H Lymph % (Auto) 12.4 L [place] % (Auto) 9.6 Eos % (Auto) 1.4 L Baso % (Auto) 0.5 Neut # (Auto) 7600 H Lymph # (Auto) 1200 [place] # (Auto) 1000 H Eos # (Auto) 100 Baso # (Auto) 100 Sodium 135 L Potassium 4.5 Chloride 100 Carbon Dioxide 29 BUN 24 H Creatinine 1.02 Estimated GFR > 60.0 BUN/Creatinine Ratio 23.5 H Glucose 139 H Lactate Calcium 9.3 Total Bilirubin 1.4 H AST 166 H ALT 195 H Alkaline Phosphatase 504 H Total Creatine Kinase CK-MB (CK-2) CK-MB (CK-2) Rel Index Troponin I NT-Pro-B Natriuret Pep Total Protein 7.7 Albumin 3.9 Globulin 3.8 Albumin/Globulin Ratio 1.0 Procalcitonin COVID-19 PCR Negative 07/21/20 07/21/20 07/21/20 12:45 12:45 12:45 WBC RBC Hgb Hct MCV MCH MCHC RDW Plt Count Neut % (Auto) Lymph % (Auto) [place] % (Auto) Eos % (Auto) Baso % (Auto) Neut # (Auto) Lymph # (Auto) [place] # (Auto) Eos # (Auto) Baso # (Auto) Sodium Potassium Chloride Carbon Dioxide BUN Creatinine Estimated GFR BUN/Creatinine Ratio Glucose Lactate 2.2 H Calcium Total Bilirubin AST ALT Alkaline Phosphatase Total Creatine Kinase 94 CK-MB (CK-2) TNP CK-MB (CK-2) Rel Index TNP Troponin I 0.154 H* NT-Pro-B Natriuret Pep 1710 H Total Protein Albumin Globulin Albumin/Globulin Ratio Procalcitonin 0.83 H COVID-19 PCR 07/21/20 07/21/20 07/22/20 15:00 22:54 04:47 WBC RBC Hgb Hct MCV MCH MCHC RDW Plt Count Neut % (Auto) Lymph % (Auto) [place] % (Auto) Eos % (Auto) Baso % (Auto) Neut # (Auto) Lymph # (Auto) [place] # (Auto) Eos # (Auto) Baso # (Auto) Sodium 134 L Potassium 4.5 Chloride 98 Carbon Dioxide 27 BUN 34 H Creatinine 1.38 H Estimated GFR 51.6 L BUN/Creatinine Ratio 24.6 H Glucose 166 H Lactate 2.4 H Calcium 9.3 Total Bilirubin AST ALT Alkaline Phosphatase Total Creatine Kinase CK-MB (CK-2) CK-MB (CK-2) Rel Index Troponin I 0.358 H* NT-Pro-B Natriuret Pep 1850 H Total Protein Albumin Globulin Albumin/Globulin Ratio Procalcitonin COVID-19 PCR Assessment & Plan Assessment & Plan narrative: 1. COPD exacerbation with possible pneumonia PLAN: Continue IV steroids, antibiotics, frequent nebulizers, and oxygen as necessary. Will increase SVN nebulizers to 5 mg. Have increased frequency of Ativan dosing to 2 mg every 1 hour as needed for air hunger. If patient is unable to recover from this COPD exacerbation and possible pneumonia, may need to discuss hospice in the setting of his newly diagnosed lung cancer with metastases as his respiratory distress has been difficult to control. 2. Right lung mass, likely primary pulmonary carcinoma. Evidence of mets in his liver, his pleura, and perhaps even into the abdominal space. -Not amenable to cure. -Will need tissue sample for definitive diagnosis but will need to optimize respiratory status well before proceeding with that. Will need to see Oncology. PLAN: Will be worked up as an outpatient after acute respiratory distress resolved. 3. Non ST-elevation MA, consistent with type 2 myocardial infarction. -Serial troponins trending down: 0.154 --> 0.358 --> 0.229 -No chest pain. PLAN: Will check troponin again in the morning and continue serial EKGs. Supportive care with morphine, nitro, ativan, oxygen, etc. Not a candidate for intervention at this point. 4. Atrial fibrillation, acute, new, now resolved after diltiazem XR 180 mg PO qd PLAN: Will watch closely and restart diltizaem if needed. 5. Congestive heart failure, acute -Elevated BNP as well as respiratory distress: 1720 --> 1850 PLAN: Will not aggressively treat given elevated lactate levels and possibility of sepsis. Echo pending for evaluation of left ventricular function which would be important in the process of evaluating and treating his lung cancer as well. Will trend BNPs. 6. Acute kidney injury, likely secondary to NSTEMI PLAN: Will treat underlying diseases and trend BMP. 7. Chronic smoker PLAN: Nicotine patch as necessary. 8. History of illicit drug use including methamphetamine -Patient reports no recent use but this certainly has been present. PLAN: Observe for evidence of withdrawal effect although none apparent at the moment 9. Hypertension, chronic PLAN: Will restart home lisinopril today. 10. Chronic pain syndrome PLAN: Continue home hydrocodone. VTE prophylaxis: lovenox Code status: DNR/DNI COVID-19 status: Negative
--- NOTE | 2020-07-22 08:00 | DI.ECHO.S_ITS ---
[facility]---------+ [facility] +---------+ : : [address] : : : : [id number] : : : : Phone: [phone]+ Echocardiogram Report + + :Name: JORGE ABEBE Study Date: 07/22/2020 Height: 73 in : :[facility] Exam Location: [place] Weight: 273 lb : : Gender: Male BSA: 2.5 m2 : :: 1955 Age: 64 yrs BP: 158/50 mmHg: :Reason For Study: NSTEMI : :Ordering Physician: Sebastián : :Hospitalist Performed By: Marlene Page : :Referring: MIR CHAPPELL : + + Interpretation Summary Left ventricular wall thickness is mildly increased. Left ventricular systolic function appears normal without focal wall motion abnormalities. The ejection fraction is estimated to be 60-65%. The right ventricle is borderline dilated. The right ventricular systolic function is normal. Pulmonary artery pressures cannot be estimated because of the lack of a measurable TR jet velocity. Both atria are normal in size. Prominent chiari network (normal variant) is noted. There is no significant valvular heart disease. The ascending aorta is mildly enlarged. There is increased liver echogenicity. Consider dedicated liver ultrasound. Procedure: A two-dimensional transthoracic echocardiogram with color flow and Doppler was performed. The study quality was technically adequate. There is no prior echocardiogram noted for this patient. The heart rate ranged between 80-104 bpm during the study. The patient had frequent PACs during the exam. Left Ventricle: The left ventricle is normal in size. Left ventricular wall thickness is mildly increased. Left ventricular systolic function appears normal without focal wall motion abnormalities. The ejection fraction is estimated to be 60-65%. Right Ventricle: The right ventricle is borderline dilated. The right ventricular systolic function is normal. Atria: Both atria are normal in size. Chiari network (normal variant) is noted. There is no Doppler evidence for an interatrial shunt. Mitral Valve: The mitral valve is normal in structure and function. The mitral valve leaflets are slightly calcified. There is no mitral regurgitation. Aortic Valve: The aortic valve is grossly normal. The aortic valve opens well. No aortic regurgitation is present. Tricuspid Valve: The tricuspid valve is normal in structure and function. There is a trace or physiologic amount of tricuspid regurgitation. Pulmonary artery pressures cannot be estimated because of the lack of a measurable TR jet velocity. Pulmonic Valve: The pulmonic valve is not well visualized. There is no significant valvular heart disease. Great Vessels: The aortic root is normal size. The ascending aorta is mildly enlarged. The pulmonary is not well visualized. The IVC is of normal diameter and collapses greater than 50% with a sniff. This suggests a low right atrial pressure of 3 mm Hg. Pericardium/ Pleura There is no pericardial effusion. There is no pleural effusion. MMode/2D Measurements & Calculations LVIDd: 5.7 cm LVOT diam: 2.4 cm LVIDs: 3.1 cm Ao root diam: 3.5 cm FS: 45.9 % asc Aorta Diam: 3.5 cm IVSd: 1.2 cm LVPWd: 1.0 cm LV ambrose. diameter/BSA (cm/m^2): 2.3 LV sys. diameter/BSA (cm/m^2): 1.3 LA A2 area: 21.7 cm2 RA long axis: 4.4 cm LA A4 area: 24.7 cm2 RA area: 18.0 cm2 LA length (vol): 6.2 cm RA vol: 61.8 ml LA vol: 73.7 ml RA : 25.2 ml/m2 LA vol index: 30.0 ml/m2 IVC diam: 1.8 cm RVD1 (basal): 5.2 cm Doppler Measurements & Calculations Ao V2 max: 150.1 cm/sec LVOT Max Larry: 106.3 cm/sec Ao V2 mean: 99.8 cm/sec LV V1 max P.6 mmHg Ao max P.1 mmHg LV V1 VTI: 18.8 cm Ao mean P.5 mmHg CHANDRA(I,D): 3.3 cm2 Ao V2 VTI: 25.2 cm CHANDRA(V,D): 3.2 cm2 sev ratio: 0.74 CHANDRA indexed to BSA (cm^2/m^2): 1.4 MV P1/2t: 54.7 msec MV P1/2t max larry: 55.2 cm/sec MVA(P1/2t): 4.0 cm2 SV(LVOT): 83.9 ml Reading Physician:04:05 PM
[2020-07-22] MEDS: ALBUTEROL/IPRATROPIUM 3 ML AMPUL INH ×4 (08:40→21:01)
[2020-07-22] MEDS: ENOXAPARIN 40 MG/0.4 ML SYRINGE SUBCUT (08:59)
[2020-07-22] MEDS: NICOTINE 14 PATCH 14 MG TOP (08:59)
[2020-07-22] MEDS: lisinopriL 20 MG TABLET 40 MG PO (09:00)
[2020-07-22] MEDS: MORPHINE 2 MG/ML INJ IV (09:12)
[2020-07-22] MEDS: NITROGLYCERIN OINT 1 INCH/GM OINT...G. TOP ×2 (09:20→15:40)
[2020-07-22 10:10] LABS: Troponin I 0.229 ng/mL (0.01-0.034)
--- NOTE | 2020-07-22 10:21 | PC.NURSE ---
Addendum entered by Jenn Salvador R.N. 07/22/20 14:51: Patient comfortable at this time. He is getting his Echo done, o sob noted. IV to r.forearm wnl and pt is doing well. Original Note: Patient given 2mg of iv morphine for increased shortness of breath. He becomes very sob with even standing up at the bedside. LS are diminished, patient is a shallow breather and also has some wheezing. He is A&Ox3. Nicotine patched placed on patients l.shoulder. BP wnl and blood pressure medication given. Patients troponin has actually come down to 0.229, it was 0.358. He denies chest pain at this time. He is on tele and is ST in the 115s. Patient was given a bed bath and is resting in bed.
--- NOTE | 2020-07-22 10:31 | PT.IIE ---
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 Social History Household Members none Living Arrangements RV Number of Floors (Floors) One Floor Number of Stairs To Enter/Railing? 5 steps to enter with L rail ascending Home Environment High Toilet,Walk in Shower Home Equipment Hand Held Shower Additional Social History Comment pt stated that he lives in the same area as his brother and his brother assists him as needed M2 PT-IP Current Condition Start: 07/22/20 11:22 Freq: NEEDED Status: Active Protocol: Document 07/22/20 10:31 AB (Rec: 07/22/20 11:38 AB [id number]) Physical Therapy Current Condition Current Condition Evaluation Date 07/22/20 Treatment Diagnosis COPD exar; NSTEMI; difficulty in walking Onset Date 07/21/20 Precautions Other Precautions O2 sat with 2L/min O2: 88-91% Falls M3 PT-IP Subjective Start: 07/22/20 11:22 Freq: NEEDED Status: Active Protocol: Document 07/22/20 10:31 AB (Rec: 07/22/20 11:38 AB [id number]) Subjective Physical Therapy Visit Type Type Initial Evaluation Visit Start Time 10:31 Visit Stop Time 11:18 Total Visit Minutes 37 Notes pt seen for split visits: 1031 am to 1040am and 1050 to 1118 Number of CHEMISTRY QUALITY CONTROL ANALYST Visits 0 Physical Therapy Visit Comments Patient Comments pt is agreeable to do PT Therapy Pain Assessment Pain Present Pain Present Denied Pain M4 PT-IP Mobility and Gait Start: 07/22/20 11:22 Freq: NEEDED Status: Active Protocol: Document 07/22/20 10:31 AB (Rec: 07/22/20 11:38 AB [id number]) PT-Bed Mobility Assessment Supine to Sit Supine to Sit Standby Assistance,Head of Bed Elevated,Bedrails Sit to Supine Sit to Supine Standby Assistance,Head of Bed Elevated,Bedrails PT-Transfer Assessment Sit to and From Stand Sit to and from Stand Minimal Assistance,1 Person Assistance,Use of Upper Extremities Equipment Transfer Assistive Device Gait Belt,Front Wheeled Walker Orthotic/Prosthetic Devices or Brace: No Comments Mobility Comments completed supine to sit with HOB elevated and pt used bed rail to assist SBA. requires increase time to complete task . O2 sat at rest: 88-91% and O2 sat maintained 90-91% with activity with 2L/min O2 on. pt was able to sit on EOB SBA. (+) SOB but with O2 sat at 90%. completed sit to stand min A and able to ambulate ~ 6 ft using FWW mod A with R knee slight buckling. pt requested to go back to bed. completed sit to supine SBA with use of bed. positioned pt in bed. call light and table placed within reach. Gait Assessment Gait Gait Assistance Required: Minimum Assistance,1 Person Assist Distance (Feet) 6 Able to Maintain Weight Bearing Status Yes During Gait Assistive Devices Assistive Device Gait Belt,Front Wheeled Walker Orthotic/Prosthetic Devices or Brace: No Gait Deviations General Gait Pattern Antalgic,Decreased Stride Length,Decreased Feet Clearance,Step-to Gait Factors Limiting Gait Function Factors Limiting Gait Function Decreased Activity Tolerance, Decreased Strength,Pain,Poor Balance,Poor Safety Awareness PT-Balance Assessment Sitting Balance and Reactions Static Sitting Balance Ability Good Dynamic Sitting Balance Ability Good Standing Balance and Reactions Static Standing Balance Ability Fair Dynamic Standing Balance Ability Poor Device Used FWW M5 PT-IP Objective Assessments Start: 07/22/20 11:22 Freq: NEEDED Status: Active Protocol: Document 07/22/20 10:31 AB (Rec: 07/22/20 11:38 AB [id number]) Orientation Orientation/Cognition Level of Alertness Alert Orientation Name,Age,Place,Situation Strength Lower Extremity Strength Assessment Bilaterally Impaired Hip 3+/5 Knee 3+/5 Coordination Assessment Gross Coordination Gross Coordination WNL Muscle Tone Muscle Tone WNL Yes M6 PT-IP Treatment Start: 07/22/20 11:22 Freq: NEEDED Status: Active Protocol: Document 07/22/20 10:31 AB (Rec: 07/22/20 11:38 AB [id number]) Physical Therapy Treatment Education Education Provided Safety M7 PT-IP Assessment and Plan Start: 07/22/20 11:22 Freq: NEEDED Status: Active Protocol: Document 07/22/20 10:31 AB (Rec: 07/22/20 11:38 AB [id number]) PT Summary Assessment and Plan Potential Rehabilitation Potential Good Status of Condition at Evaluation Evolving Summary Impairments Pain,ROM,Strength,Balance, Coordination,Sensation,Tone, Cognition,Bed Mobility, Transfers,Gait,Activity Tolerance Assessment Summary pt requiring min A with mobility and requires increase time to complete tasks. pt also has decrease activity tolerance with (+) SOB even at rest. Pt lives alone and will not have any assistance at home. pt stated that his brother can assist some but cannot stay with him. Pt also does not want to stay at brother's house. per machine adjuster leader case trim, pt is pending hospice consult. pt is not safe to go home and will need SNF LTC/ hospice care. Goals Bed Mobility Goal Contact Guard Assistance Transfer Goal Contact Guard Assistance,Front Wheeled Walker Gait Goal Contact Guard Assistance,Front Wheel Walker Gait Distance 50 Days to Meet Goals 5 Frequency of Treatment Frequency Of Treatment Once a Day Treatment Plan Physical Therapy Treatment Plan Bed Mobility Training,Transfer Training,Gait Training, Therapeutic Exercise,Balance Retraining,Discharge Planning, Hot or Cold Pack,Neuromuscular Re-ed Recommendations To Nursing Amount of Assist Needed 1 Person Assist Discharge Recommendations PT Discharge Recommendations Home Health,SNF Rehab Transportation Needs at Discharge Wheelchair/Cabulance,Stretcher /Ambulance
--- NOTE | 2020-07-22 13:16 | CM.IDA ---
Initial DCP Assessment Note Patient is a 64 yo male, resident of [place]. Patient presents after 7-8 days of increasing difficulty breathing/SOB, in the ED: patient found to be hypoxic on room air. CT imaging evidenced large lung mass as well as multiple large liver masses suspicious for metastatic disease, patient w/h/o COPD, HTN, lung CA and meth use Patient admitted for treatment of his COPD exacerbation, OH, CHF PCP: Dr Bolivar Payer: [facility] Reviewed chart, patient discussed in rounds w/Palliative Care RN Ingris, also nurse coordinator today. Ingris suggests patient might benefit from Palliative Care discussion/consult. This FLEXIBLE SHAFT WINDER comfortable starting the goals of care conversation by beginning w/discussion about DC options. According to Edie, PT, patient will likely require SNF, lives alone and has been slowly declining. Met w/patient and his sister Clementine (visiting from [place]) at bedside, introduced role. Patient lives alone in a trailer on his brother's property near [facility], no children. Patient wants to designate his brother Slade as his DPOA; this FLEXIBLE SHAFT WINDER will provide Who Will Decide DPOA brochure for patient/family. Patient admits his brother doesn't visit his trailer because I have smoked in it for years and patient doesn't stay in his brother's house because it's too clean. Patient is quite groggy during this visit, nods off to sleep throughout and cannot tolerate much talking d/t SOB. This FLEXIBLE SHAFT WINDER asks what patient and Clementine understand about current medical findings, medical POC, and MD suggestions moving forward ? Patient/sister understand that metastatic lung CA is suspected and that current POC is manage resp distress/infection before DC w/outpt f/u. Patient confirms DNR status and when asked about next steps in POC states I need to find out more information first. Briefly discussed suspected metastatic process and suggested that for some people, especially w/multiple co-morbidities, even w/palliative chemo/treatment- the risks and burden begin to outweigh the benefit. Sister seemed appreciative of the suggestion. Reviewed DCP options; patient eager to return home but seems to understand (?) that he will require care. Discussed home w/HH and agency cg, home w/hospice, SNF rehab. Patient cannot afford private cg. Patient is not able to participate much at this point in the conversation but does suggest his brother Slade be present for this decision. This FLEXIBLE SHAFT WINDER suggested brother come tomorrow and/or Friday when Dr Bolivar returns to discuss POC and DCP. DCP team will be following closely. Patient's sister Clementine feels patient will require SNF rehab (patient has never been) so this FLEXIBLE SHAFT WINDER explained SNF auth process through [facility], SNF choice was not discussed. FLEXIBLE SHAFT WINDER team will follow closely and remain available to review goals of care and DCP options w/patient and family as needed. BRISEIDA Cheema
[2020-07-22] MEDS: AZITHROMYCIN 500 MG in DEXTROSE 5% IN WATER 250 ML IV (15:27)
[2020-07-22] MEDS: SODIUM CHLORIDE 0.9% 250 ML 21 ML IV (15:46)
[2020-07-22] MEDS: SODIUM CHLORIDE 0.9% FLUSH 10 ML IV ×3 (15:46→23:35)
[2020-07-22] MEDS: CEFTRIAXONE 2 GM/50 ML FROZ.PIGGY IV (17:15)
[2020-07-22] MEDS: LORazepam 2 MG/ML INJ IV ×2 (17:24→21:28)
[2020-07-22] MEDS: FUROSEMIDE 40 MG/4 ML VIAL IV (22:32)
[2020-07-23] VITALS (16 sets, daily range): BP systolic 118–137; BP diastolic 58–76; PULSE 75–106; RESP 18–40; TEMP 36.4–36.7; O2SAT 92–96
--- NOTE | 2020-07-23 02:26 | PC.NURSE ---
Addendum entered by Dina Zuleta R.N. 07/23/20 06:31: Late entry: when up at 0356 patient had a drink of water and had immediate episode of sustained coughing. Addendum entered by Dina Zuleta R.N. 07/23/20 03:56: [place] noises coming from room and when patient checked on was half sitting up on edge of bed and dyspneic with telemetry leads off. O2 sat on 2L oxygen was 92% with HR of 112. Oxygen increased back to 3L/min and RT contacted but they stated nebs would not help because he had no wheezing. After approximately 5 minutes respirations more relaxed but remains SOB. Stated he needed to urinate so assisted onto BSC. Needs much cueing in proper use of walker and is extremely weak. Breath sounds diminished but without crackles. Assisted back to bed with walker and 2 assists. States the Ativan makes him wacko. Addendum entered by Dina Zuleta R.N. 07/23/20 02:54: Patient had telemetry and oxygen pulled off and when checked had been incontinent of stool. Stood at bedside with walker and 1 assist while WOOD MILLING MACHINE TENDER provided pericare then back to bed. Patient requested/medicated with Ativan. Denies pain. Original Note: 4131 Patient seen and assessed. Is alert and oriented but very soft spoken making it difficult to understand. Breath sounds diminished but CTA. RR of 33 and using accessory muscles. States he is SOB but improved from earlier. Oxygen at 3.5L/min per HFNC with sat of 90% with intermittent drops into upper 80's. Reports nonproductive cough. HR irregular and telemetry reading was SR w/BBB and PAC's. Denies nausea. Abdomen is large, soft and with hypoactive BT. Denies dysuria, frequency or urgency and uses urinal. Is able to move himself and is impulsive; doesn't remember to use the call light. Gait not assessed at this time but seems to have generalized weakness. Refusing SCD's so reminded to ankle wave. Denies pain. Fall risk score is high and bed alarm is activated.
[2020-07-23] MEDS: LORazepam 2 MG/ML INJ IV (02:48)
[2020-07-23] MEDS: SODIUM CHLORIDE 0.9% FLUSH 10 ML IV ×4 (02:48→19:55)
[2020-07-23 05:30] LABS: Add Manual Diff / Slide Review NO; Basophils Absolute Auto 0 /uL (0-100); Basophils Percent Auto 0.1 % (0-2); Eosinophils Absolute Auto 0 /uL (0-450); Hematocrit 42.6 % (41-53); Hemoglobin 13.9 g/dL (13.5-17.5); Lymphocytes Absolute Auto 600 /uL (1100-4500); Lymphocytes Percent Auto 3.7 % (25-40); Mean Corpuscular HGB Conc 32.7 % (30-36); Mean Corpuscular Hemoglobin 27.3 PG (26-34); Mean Corpuscular Volume 83.5 fL (80-100); Monocytes Absolute Auto 800 /uL (0-900); Neutrophils Absolute Auto 14500 /uL (1500-7000); Neutrophils Percent Auto 91.2 % (50-75); Platelet Count 208 X10^3/uL (150-400); White Blood Cell Count 15.9 X10^3/uL (4.5-11.0)
[2020-07-23 05:44] LABS: Alanine Aminotransferase 186 IU/L (<50); Albumin 3.4 g/dL (3.5-5.0); Alkaline Phosphatase 364 U/L (38-126); Aspartate Aminotransferase 134 IU/L (17-59); BUN Creatinine Ratio 37.4 (6-22); Bilirubin Total 0.8 mg/dL (0.2-1.3); Blood Urea Nitrogen 52 mg/dL (9-20); Calcium 8.9 mg/dL (8.4-10.2); Carbon Dioxide 28 mmol/L (22-32); Chloride 99 mmol/L (98-107); Estimated Glomerular Filt Rate 51.1 mL/min (>60); Globulin 3.5 g/dL (1.7-4.1); Glucose 147 mg/dL (80-110); HEMOLYSIS < 15 (0-50); Potassium 4.6 mmol/L (3.4-5.1); Sodium 133 mmol/L (137-145); Total Protein 6.9 g/dL (6.3-8.2)
[2020-07-23 05:51] LABS: NT-proBNP (BNP-Adult 18+) 527 pg/mL (<125)
[2020-07-23] MEDS: methylPREDNISolone 125 MG/2 ML VIAL 60 MG IV ×3 (06:27→18:57)
[2020-07-23] MEDS: ALBUTEROL/IPRATROPIUM 3 ML AMPUL INH ×4 (08:20→20:59)
--- NOTE | 2020-07-23 08:27 | P.PN_ITS ---
Subjective Subjective Date Patient Seen: 07/23/20 Time Patient Seen: 08:27 Interval history: Continues to have trouble with breathing. Respiratory therapy has been very involved providing multiple large volume nebulizer treatments with minimal improvement. He remains on antibiotics and steroids for his COPD exacerbation. Underlying all of this is his newly diagnosed lung cancer which is likely largely contributing to his dyspnea. Have been using Ativan with good effect to alleviate some of his air hunger and help him rest. Was also given 40 mg of IV Lasix yesterday to see if that might help and BMP was markedly improved this morning. Oxygen level is now at 3 L. Otherwise, he is eating well, no nausea or vomiting. Ambulating with assistance from nurses. Denies chest pain. Troponins have now normalized. Exam Vital Signs (past 8 hours): - 07/23/20 02:56 07/23/20 03:00 07/23/20 03:39 Temperature 97.6 F Pulse Rate 75 105 H Respiratory Rate 40 H 26 H Blood Pressure 137/61 Pulse Oximetry 93 92 92 07/23/20 03:55 07/23/20 07:50 07/23/20 08:17 Temperature 98.0 F Pulse Rate 90 Respiratory Rate 38 H Blood Pressure 133/76 Pulse Oximetry 92 93 93 Oxygen Delivery Method Nasal Cannula Oxygen Flow Rate 3 Narrative Exam Narrative: GENERAL: Alert and oriented, appearing older than stated age and in no acute distress. HEENT: Head normocephalic/atraumatic. Pupils equal, round, and reactive to light and accomodation. Extraocular muscles intact. Tympanic membranes clear. Nasal mucosa moist, septum midline. Oral mucosa moist, no lesions. Neck soft and supple, no lymphadenopathy. LUNGS: Diminished inspiratory effort, very little air movement at all. Harsh expiratory wheezing with cough. CV: Normal S1 and S2 with regular rate and rhythm, no audible murmurs, rubs or gallops. ABDOMEN: Soft, non-tender, non-distended, no organomegaly. Positive bowel sounds. EXTREMITIES: No clubbing, cyanosis, or edema. NEURO: Cranial nerves II through XII grossly intact, no focal deficits. PSYCH: Alert and oriented x 3. SKIN: No concerning lesions. Objective Labs Result Diagrams: 07/23/20 05:10 07/23/20 05:10 Labs: Laboratory Results - last 24 hr 07/22/20 07/23/20 07/23/20 08:15 05:10 05:10 WBC 15.9 H D RBC 5.10 Hgb 13.9 Hct 42.6 MCV 83.5 MCH 27.3 MCHC 32.7 RDW 16.0 H Plt Count 208 Neut % (Auto) 91.2 H Lymph % (Auto) 3.7 L [place] % (Auto) 5.0 Eos % (Auto) 0.0 L Baso % (Auto) 0.1 Neut # (Auto) 71573 H Lymph # (Auto) 600 L [place] # (Auto) 800 Eos # (Auto) 0 Baso # (Auto) 0 Sodium Potassium Chloride Carbon Dioxide BUN Creatinine Estimated GFR BUN/Creatinine Ratio Glucose Calcium Total Bilirubin AST ALT Alkaline Phosphatase Troponin I 0.229 H* 0.110 H NT-Pro-B Natriuret Pep Total Protein Albumin Globulin Albumin/Globulin Ratio 07/23/20 05:10 WBC RBC Hgb Hct MCV MCH MCHC RDW Plt Count Neut % (Auto) Lymph % (Auto) [place] % (Auto) Eos % (Auto) Baso % (Auto) Neut # (Auto) Lymph # (Auto) [place] # (Auto) Eos # (Auto) Baso # (Auto) Sodium 133 L Potassium 4.6 Chloride 99 Carbon Dioxide 28 BUN 52 H Creatinine 1.39 H Estimated GFR 51.1 L BUN/Creatinine Ratio 37.4 H Glucose 147 H Calcium 8.9 Total Bilirubin 0.8 AST 134 H ALT 186 H Alkaline Phosphatase 364 H Troponin I NT-Pro-B Natriuret Pep 527 H Total Protein 6.9 Albumin 3.4 L Globulin 3.5 Albumin/Globulin Ratio 1.0 Assessment & Plan Assessment & Plan narrative: 1. COPD exacerbation with possible pneumonia -Sputum culture showed mixed delia only. -Blood culture negative x 2. -WBC trending up: 9.9 --> 15.9 PLAN: Continue IV steroids, antibiotics, frequent nebulizers, and oxygen as necessary. Continue Ativan 2 mg every 1 hour as needed for air hunger. If patient is unable to recover from this COPD exacerbation and possible pneumonia, may need to discuss hospice in the setting of his newly diagnosed lung cancer with metastases as his respiratory distress has been difficult to control. Today he is looking slightly better, will see what his status is like in the morning. 2. Right lung mass, likely primary pulmonary carcinoma. Evidence of mets in his liver, his pleura, and perhaps even into the abdominal space. -Not amenable to cure. -Will need tissue sample for definitive diagnosis but will need to optimize respiratory status well before proceeding with that. Will need to see Oncology. PLAN: Will be worked up as an outpatient after acute respiratory distress resolved. 3. Non ST-elevation OK, consistent with type 2 myocardial infarction. -Serial troponins trending down: 0.154 --> 0.358 --> 0.229 --> 0.110 -No chest pain. -Echo on 07/22/20 showed EF of 60-65%, mild LVH, and borderline dilated RV PLAN: Will continue telemetry. Supportive care with morphine, nitro, ativan, oxygen, etc. Not a candidate for intervention at this point. 4. Atrial fibrillation, acute, new, now resolved after diltiazem XR 180 mg PO qd PLAN: Will watch closely and restart diltizaem if needed. Telemetry as noted above. 5. Congestive heart failure with preserved ejection fraction, acute, improving -Has had lasix x 2 (ED and 07/22/20) -BNP trending down: 1720 --> 1850 --> 527 -Echo as noted above. PLAN: Will trend labs. 6. Acute kidney injury, likely secondary to NSTEMI PLAN: Will treat underlying diseases and trend BMP. 7. Chronic smoker PLAN: Nicotine patch as necessary. 8. History of illicit drug use including methamphetamine -Patient reports no recent use but this certainly has been present. PLAN: Observe for evidence of withdrawal effect although none apparent at the moment 9. Hypertension, chronic PLAN: Continue home lisinopril. 10. Chronic pain syndrome PLAN: Continue home hydrocodone. VTE prophylaxis: lovenox Code status: DNR/DNI COVID-19 status: Negative
[2020-07-23] MEDS: ENOXAPARIN 40 MG/0.4 ML SYRINGE SUBCUT (08:55)
[2020-07-23] MEDS: NITROGLYCERIN OINT 1 INCH/GM OINT...G. TOP (08:56)
[2020-07-23] MEDS: NICOTINE 14 PATCH 14 MG TOP (08:57)
[2020-07-23] MEDS: lisinopriL 20 MG TABLET 40 MG PO (08:57)
--- NOTE | 2020-07-23 09:11 | PC.NURSE ---
Patient finished breakfast and moved himself back into bed. RT came and did his treatment and RN gave him his meds. Patient is trying to go back to sleep.
[2020-07-23 09:24] LABS: pH ABG 7.35 (7.35-7.45)
[2020-07-23 09:25] LABS: Fractionated Inspired Oxygen 0.32; HCO3 ABG 28 mmol/L (22-26); Oxygen Saturation ABG 92 % (95-100); TCO2 ABG 30 mmol/L (21-31)
[2020-07-23 09:26] LABS: PO2 ABG 70 mmHg (80-100)
--- NOTE | 2020-07-23 11:11 | CM.DANOTE ---
DCP/continued: Reviewed previous CM notes. Patient is a 64yr old male with suspected lung CA with mets. PCP is Dr. Bolivar. Patient currently DNR. KEYPUNCH OPERATOR met with patient this AM explained role. Patient laying on his back with [address]. Patient with very low voice reports that he is unsure of is plan right now. He hopes to have more answers tomorrow. Patient reports that he does reside alone but has family close by. Patient refers to his brother/Slade as decision maker # [phone] he also requests that all medical information during this hospitalization be given to Slade because patient having difficulty understanding. Notified patient that this would be placed in KEYPUNCH OPERATOR note for Dr. Bolivar to see tomorrow if Slade not at bedside. In addition, KEYPUNCH OPERATOR discussed next steps regarding d/c planning. Patient reports if needed he would go to SNF but would prefer to go home. Patient adds that this will depend on the [place] [facility] decision made. Patient has benefit to go to SNF for rehab as well as SNF under comfort care/hospice. Patient reports that his preference is to go home. Patient reports that I miss my cat. Patient does believe that he can get enough assistance in the home to make it work. KEYPUNCH OPERATOR provided patient with name/number of CM team and Medicare SNF list. Patient reports that if he does need to go anywhere he would like to go next door ([facility]). Placed call to [facility], spoke with Amber requesting that they only review on Friday- and call KEYPUNCH OPERATOR with thoughts. P: Pending BRISEIDA Bauman
[2020-07-23 13:06] LABS: Troponin I 0.154 ng/mL (0.01-0.034)
--- NOTE | 2020-07-23 14:03 | PT.IPTN ---
Physical Therapy Treatment Note M2 PT-IP Current Condition Start: 07/22/20 11:22 Freq: NEEDED Status: Active Protocol: Document 07/22/20 10:31 AB (Rec: 07/22/20 11:38 AB [id number]) Physical Therapy Current Condition Current Condition Evaluation Date 07/22/20 Treatment Diagnosis COPD exar; NSTEMI; difficulty in walking Onset Date 07/21/20 Precautions Other Precautions O2 sat with 2L/min O2: 88-91% Falls M3 PT-IP Subjective Start: 07/22/20 11:22 Freq: NEEDED Status: Active Protocol: Document 07/23/20 13:55 SAK (Rec: 07/23/20 14:03 SAK [id number]) Subjective Physical Therapy Visit Comments Patient Comments Patient found sitting up in chair. Willing to work with PT though reports very fatigued. Wants to get back to bed when done. Therapy Pain Assessment Pain When Pain Assessed At Rest Pain Present Pain Present Pain Reported M4 PT-IP Mobility and Gait Start: 07/22/20 11:22 Freq: NEEDED Status: Active Protocol: Document 07/23/20 13:55 SAK (Rec: 07/23/20 14:03 SAK [id number]) PT-Bed Mobility Assessment Sit to Supine Sit to Supine Minimal Assistance,Head of Bed Elevated,Bedrails PT-Transfer Assessment Sit to and From Stand Sit to and from Stand Minimal Assistance,1 Person Assistance,Use of Upper Extremities Equipment Transfer Assistive Device Gait Belt,Front Wheeled Walker Orthotic/Prosthetic Devices or Brace: No Comments Mobility Comments 02 per NC during all mobility skills 2L/min. 02 sat 88-91% at rest, 89-91% with mobility. Gait Assessment Gait Gait Assistance Required: Minimum Assistance,1 Person Assist Distance (Feet) 15 Able to Maintain Weight Bearing Status Yes During Gait Assistive Devices Assistive Device Gait Belt,Front Wheeled Walker Orthotic/Prosthetic Devices or Brace: No Gait Deviations General Gait Pattern Antalgic,Decreased Stride Length,Decreased Feet Clearance,Flexed Trunk,Step-to Gait Factors Limiting Gait Function Factors Limiting Gait Function Decreased Activity Tolerance, Decreased Strength,Pain,Poor Balance,Poor Safety Awareness Comments Gait Comments LOB x 1 requiring mod assist to correct. Patient needed cues for safe use of walker especially walking closer/ inside walker vs having it out to side or too far forward. PT-Balance Assessment Sitting Balance and Reactions Static Sitting Balance Ability Good Dynamic Sitting Balance Ability Good Standing Balance and Reactions Static Standing Balance Ability Fair Dynamic Standing Balance Ability Poor Device Used FWW M5 PT-IP Objective Assessments Start: 07/22/20 11:22 Freq: NEEDED Status: Active Protocol: Document 07/22/20 10:31 AB (Rec: 07/22/20 11:38 AB [id number]) Orientation Orientation/Cognition Level of Alertness Alert Orientation Name,Age,Place,Situation Strength Lower Extremity Strength Assessment Bilaterally Impaired Hip 3+/5 Knee 3+/5 Coordination Assessment Gross Coordination Gross Coordination WNL Muscle Tone Muscle Tone WNL Yes M6 PT-IP Treatment Start: 07/22/20 11:22 Freq: NEEDED Status: Active Protocol: Document 07/23/20 13:55 SAK (Rec: 07/23/20 14:03 SAK [id number]) Physical Therapy Treatment Other Treatments Other Treatment Performed mobility as above M7 PT-IP Assessment and Plan Start: 07/22/20 11:22 Freq: NEEDED Status: Active Protocol: Document 07/23/20 13:55 SAK (Rec: 07/23/20 14:03 SAK [id number]) PT Summary Assessment and Plan Summary Impairments Pain,ROM,Strength,Balance, Coordination,Sensation,Tone, Cognition,Bed Mobility, Transfers,Gait,Activity Tolerance Assessment Summary Patient unsafe with mobility skills at this time, high risk for falls. Low activity tolerance with SOB at rest and with activity. Needed increased assist into bed today vs yesterday. Goals Bed Mobility Goal Contact Guard Assistance Transfer Goal Contact Guard Assistance,Front Wheeled Walker Gait Goal Contact Guard Assistance,Front Wheel Walker Gait Distance 50 Days to Meet Goals 5 Frequency of Treatment Frequency Of Treatment Once a Day Treatment Plan Physical Therapy Treatment Plan Bed Mobility Training,Transfer Training,Gait Training, Therapeutic Exercise,Balance Retraining,Discharge Planning, Hot or Cold Pack,Neuromuscular Re-ed Recommendations To Nursing Amount of Assist Needed 1 Person Assist Discharge Recommendations PT Discharge Recommendations SNF Rehab Other Discharge Recommendations Hospice Transportation Needs at Discharge Wheelchair/Cabulance,Stretcher /Ambulance
[2020-07-23] MEDS: ALBUTEROL 2.5 MG/3 ML NEB (ADULT) INH (14:15)
[2020-07-23] MEDS: AZITHROMYCIN 500 MG in DEXTROSE 5% IN WATER 250 ML 175 ML IV (14:21)
--- NOTE | 2020-07-23 15:02 | PC.NURSE ---
Patient has remained calm throughout the whole shift. Has stated that he is very tried and just wants to sleep. RT provided a breathing treatment not long ago. Patient would like not to be interrupted so he can just sleep. I have relayed this to his RN for this shift.
[2020-07-23] MEDS: CEFTRIAXONE 2 GM/50 ML FROZ.PIGGY IV (16:00)
[2020-07-24] VITALS (16 sets, daily range): BP systolic 129–153; BP diastolic 68–92; PULSE 93–112; RESP 18–24; TEMP 36–37.1; O2SAT 91–96
[2020-07-24] MEDS: methylPREDNISolone 125 MG/2 ML VIAL 60 MG IV ×5 (00:07→23:51)
[2020-07-24] MEDS: SODIUM CHLORIDE 0.9% FLUSH 10 ML IV ×5 (00:07→23:51)
[2020-07-24] MEDS: ALBUTEROL/IPRATROPIUM 3 ML AMPUL INH ×6 (01:19→23:14)
[2020-07-24] MEDS: HYDROCODONE/ACET 5/325 TABLET 1 TAB PO ×4 (03:09→23:55)
[2020-07-24 05:34] LABS: Add Manual Diff / Slide Review NO; Basophils Absolute Auto 0 /uL (0-100); Basophils Percent Auto 0.1 % (0-2); Eosinophils Absolute Auto 0 /uL (0-450); Hematocrit 43.4 % (41-53); Hemoglobin 14.2 g/dL (13.5-17.5); Lymphocytes Absolute Auto 300 /uL (1100-4500); Lymphocytes Percent Auto 1.8 % (25-40); Mean Corpuscular HGB Conc 32.7 % (30-36); Mean Corpuscular Hemoglobin 27.5 PG (26-34); Monocytes Absolute Auto 700 /uL (0-900); Neutrophils Absolute Auto 13900 /uL (1500-7000); Neutrophils Percent Auto 93.1 % (50-75); Platelet Count 215 X10^3/uL (150-400); Red Blood Cell Count 5.16 X10^6/uL (4.5-5.9); Red Cell Distribution Width 16.6 % (11.6-14.8); White Blood Cell Count 14.9 X10^3/uL (4.5-11.0)
[2020-07-24 05:47] LABS: Alanine Aminotransferase 286 IU/L (<50); Albumin 3.5 g/dL (3.5-5.0); Alkaline Phosphatase 346 U/L (38-126); Aspartate Aminotransferase 170 IU/L (17-59); BUN Creatinine Ratio 43.2 (6-22); Bilirubin Total 0.8 mg/dL (0.2-1.3); Blood Urea Nitrogen 67 mg/dL (9-20); Calcium 8.9 mg/dL (8.4-10.2); Carbon Dioxide 28 mmol/L (22-32); Chloride 102 mmol/L (98-107); Estimated Glomerular Filt Rate 45.1 mL/min (>60); Globulin 3.5 g/dL (1.7-4.1); Glucose 143 mg/dL (80-110); HEMOLYSIS 33 (0-50); Potassium 5.1 mmol/L (3.4-5.1); Sodium 134 mmol/L (137-145)
[2020-07-24 05:56] LABS: NT-proBNP (BNP-Adult 18+) 235 pg/mL (<125)
--- NOTE | 2020-07-24 07:49 | P.PN_ITS ---
Subjective Subjective Date Patient Seen: 07/24/20 Time Patient Seen: 07:50 Interval history: Discussed patient's care over the weekend with Dr. Rossi. Patient with significant respiratory distress although baseline has notable respiratory distress, much improved with use of Ativan only symptomatic [place]. ABG as expected shows mild hypoxia and hypercapnia. Patient currently sitting up eating 1 of the largest breakfast I have ever seen at [facility]. Says breathing is definitely all lot better than it was when he came to the hospital. Still dyspneic with any activity however. Exam Vital Signs (past 8 hours): - 07/24/20 01:02 07/24/20 01:05 07/24/20 05:00 Temperature 97.5 F L Pulse Rate 106 H 98 H Respiratory Rate 20 22 Blood Pressure 153/76 H 129/68 Pulse Oximetry 96 96 96 07/24/20 06:07 07/24/20 07:30 Temperature 97.5 F L Pulse Rate 98 H 105 H Respiratory Rate 20 20 Blood Pressure 144/74 H Pulse Oximetry 93 Oxygen Delivery Method Nasal Cannula Oxygen Flow Rate 2 Objective Labs Result Diagrams: 07/24/20 05:15 07/24/20 05:15 Labs: Laboratory Results - last 24 hr 07/21/20 07/23/20 07/24/20 12:45 09:00 05:15 WBC 14.9 H RBC 5.16 Hgb 14.2 Hct 43.4 MCV 84.0 MCH 27.5 MCHC 32.7 RDW 16.6 H Plt Count 215 Neut % (Auto) 93.1 H Lymph % (Auto) 1.8 L [place] % (Auto) 5.0 Eos % (Auto) 0.0 L Baso % (Auto) 0.1 Neut # (Auto) 35994 H Lymph # (Auto) 300 L [place] # (Auto) 700 Eos # (Auto) 0 Baso # (Auto) 0 ABG pH 7.35 ABG pCO2 50.0 H ABG pO2 70 L ABG HCO3 28 H ABG Total CO2 30 ABG O2 Saturation 92 L ABG Base Excess 2.0 FiO2 0.32 Sodium Potassium Chloride Carbon Dioxide BUN Creatinine Estimated GFR BUN/Creatinine Ratio Glucose Calcium Total Bilirubin AST ALT Alkaline Phosphatase Troponin I 0.154 H* NT-Pro-B Natriuret Pep Total Protein Albumin Globulin Albumin/Globulin Ratio 07/24/20 05:15 WBC RBC Hgb Hct MCV MCH MCHC RDW Plt Count Neut % (Auto) Lymph % (Auto) [place] % (Auto) Eos % (Auto) Baso % (Auto) Neut # (Auto) Lymph # (Auto) [place] # (Auto) Eos # (Auto) Baso # (Auto) ABG pH ABG pCO2 ABG pO2 ABG HCO3 ABG Total CO2 ABG O2 Saturation ABG Base Excess FiO2 Sodium 134 L Potassium 5.1 Chloride 102 Carbon Dioxide 28 BUN 67 H Creatinine 1.55 H Estimated GFR 45.1 L BUN/Creatinine Ratio 43.2 H Glucose 143 H Calcium 8.9 Total Bilirubin 0.8 AST 170 H ALT 286 H Alkaline Phosphatase 346 H Troponin I NT-Pro-B Natriuret Pep 235 H Total Protein 7.0 Albumin 3.5 Globulin 3.5 Albumin/Globulin Ratio 1.0 Assessment & Plan Assessment & Plan narrative: 1. COPD exacerbation-continue with IV steroids frequent nebulizers at this point. 2. Possible pneumonia-continue with IV antibiotics 3. Probable lung cancer-upon review with diagnostic imaging while it appears easy to access his hepatic lesions given lack of normal hepatic tissue they are somewhat higher risk than usual. Much simpler would probably be a bronchoscopic approach. That is somewhat difficult at this hospital and because of his current respiratory distress. May need to consult with Oncology prior to working to obtain tissue biopsy 4. Atrial fibrillation-patient has remained in sinus rhythm since an episode of AFib soon after admission. Not surprising, the atrial fibrillation, given his significant pulmonary disease 5. Question congestive heart failure-echo pretty unremarkable. Anything perhaps mildly volume overloaded. No need for additional diuretics at this point I believe 6. Disposition-patient will likely needs significant assistance at home. U ncertain how much help he has on his own. Will continue to monitor and involve physical and occupational therapy at this point. May well need mcc placement Note: Greater than 40 minutes was spent evaluating the patient on the floor, including examining the patient, discussing clinical course with clinical and nursing staff, reviewing clinical course in the computer, preparing docum entation and writing orders for continued management of care, discussing status with family as appropriate, reviewing plans for the next 24 hours with both patient/family and nursing staff as appropriate.
[2020-07-24] MEDS: ENOXAPARIN 40 MG/0.4 ML SYRINGE SUBCUT (08:10)
[2020-07-24] MEDS: NICOTINE 14 PATCH 14 MG TOP (08:11)
[2020-07-24] MEDS: lisinopriL 20 MG TABLET 40 MG PO (08:11)
[2020-07-24 09:27] LABS: PCO2 ABG 50.9 mmHg (35-45)
--- NOTE | 2020-07-24 09:47 | PT.IPTN ---
Current Diagnoses Chronic obstructive pulmonary disease with (acute) exacerbation (07/21/20) Physical Therapy Treatment Note M2 PT-IP Current Condition Start: 07/22/20 11:22 Freq: NEEDED Status: Active Protocol: Document 07/22/20 10:31 AB (Rec: 07/22/20 11:38 AB [id number]) Physical Therapy Current Condition Current Condition Evaluation Date 07/22/20 Treatment Diagnosis COPD exar; NSTEMI; difficulty in walking Onset Date 07/21/20 Precautions Other Precautions O2 sat with 2L/min O2: 88-91% Falls M3 PT-IP Subjective Start: 07/22/20 11:22 Freq: NEEDED Status: Active Protocol: Document 07/24/20 09:47 AB (Rec: 07/24/20 10:26 AB [id number]) Subjective Physical Therapy Visit Type Type Treatment Note Visit Start Time 09:47 Visit Stop Time 10:01 Total Visit Minutes 14 Number of SALES AND IN HOME DELIVERY SPECIALIST Visits 0 Physical Therapy Visit Comments Patient Comments agreeable to do PT M4 PT-IP Mobility and Gait Start: 07/22/20 11:22 Freq: NEEDED Status: Active Protocol: Document 07/24/20 09:47 AB (Rec: 07/24/20 10:26 AB [id number]) PT-Bed Mobility Assessment Sit to Supine Sit to Supine Standby Assistance PT-Transfer Assessment Sit to and From Stand Sit to and from Stand Contact Guard Assistance Equipment Transfer Assistive Device Gait Belt,Front Wheeled Walker Orthotic/Prosthetic Devices or Brace: No Comments Mobility Comments pt sitting on EOB and agreed to do PT. completed sit to stand CGA and ambulated in room using FWW min to mod A with (+) LOB requiring mod A for stability. pt requested to go back to bed after ambulation and completed sit to supine SBA. positioned in bed. call light and table placed within reach. O2 sat at start of PT session: 92% with 2L/min O2 and decreased to 88% after ambulation. cued for PLB and O2 sat increased to 94% Gait Assessment Gait Gait Assistance Required: Minimum Assistance,Moderate Assistance,1 Person Assist Distance (Feet) 20 Able to Maintain Weight Bearing Status Yes During Gait Comments Gait Comments (+) LOB during ambulation with scissoring gait : RLE tends to cross over LLE. pt stated that he has decrease LE sensation. M5 PT-IP Objective Assessments Start: 07/22/20 11:22 Freq: NEEDED Status: Active Protocol: Document 07/22/20 10:31 AB (Rec: 07/22/20 11:38 AB [id number]) Orientation Orientation/Cognition Level of Alertness Alert Orientation Name,Age,Place,Situation Strength Lower Extremity Strength Assessment Bilaterally Impaired Hip 3+/5 Knee 3+/5 Coordination Assessment Gross Coordination Gross Coordination WNL Muscle Tone Muscle Tone WNL Yes M6 PT-IP Treatment Start: 07/22/20 11:22 Freq: NEEDED Status: Active Protocol: Document 07/24/20 09:47 AB (Rec: 07/24/20 10:26 AB [id number]) Physical Therapy Treatment Education Education Provided Safety M7 PT-IP Assessment and Plan Start: 07/22/20 11:22 Freq: NEEDED Status: Active Protocol: Document 07/24/20 09:47 AB (Rec: 07/24/20 10:26 AB [id number]) PT Summary Assessment and Plan Potential Rehabilitation Potential Fair Summary Impairments Pain,ROM,Strength,Balance, Coordination,Sensation,Bed Mobility,Transfers,Gait, Activity Tolerance Progress Towards Goals Slow Progress due to Medical Issues,Slow Progress due to Activity Tolerance Assessment Summary pt requiring min to mod A with ambulation using FWW and unable to ambulate much due to decrease activity tolerance with decrease in O2 sat with activity. pt will need SNF rehab to improve strength and ambulation. Goals Bed Mobility Goal Contact Guard Assistance Transfer Goal Contact Guard Assistance,Front Wheeled Walker Gait Goal Contact Guard Assistance,Front Wheel Walker Gait Distance 50 Days to Meet Goals 5 Frequency of Treatment Frequency Of Treatment Once a Day Treatment Plan Physical Therapy Treatment Plan Bed Mobility Training,Transfer Training,Gait Training, Therapeutic Exercise,Balance Retraining,Discharge Planning, Hot or Cold Pack,Neuromuscular Re-ed Recommendations To Nursing Amount of Assist Needed 1 Person Assist Discharge Recommendations PT Discharge Recommendations SNF Rehab Transportation Needs at Discharge Wheelchair/Cabulance,Stretcher /Ambulance
[2020-07-24] MEDS: AZITHROMYCIN 500 MG in DEXTROSE 5% IN WATER 250 ML 150 ML IV (14:17)
--- NOTE | 2020-07-24 15:07 | CM.DANOTE ---
DCP/continued: Received notification that patient's brother/Slade here to meet with MET[employer] AND PLASTIC HEATER re: d/c planning and resources. Met with patient and Slade explained role. Slade and patient's understanding is that next step will be rehabilitation. Patient had already provided me with permission to notify [facility]. This [employer] P[employer] HE[employer] unable to follow up with [facility] today due to demands in Emergency Department. In addition, provided Slade with snf application to apply for [facility] which will secure long-term housing and/or caregivers. Also provided them with DPOA paperwork and burial information as they requested. P: Anticipate d/c to [facility] unless medical course changes. CM team to follow up with [facility] on 07-25-20. PASRR needed. BRISEIDA Bauman
[2020-07-24] MEDS: CEFTRIAXONE 2 GM/50 ML FROZ.PIGGY IV (16:29)
[2020-07-25] VITALS (13 sets, daily range): BP systolic 131–167; BP diastolic 75–100; PULSE 73–102; RESP 16–26; TEMP 36.1–36.8; O2SAT 91–98
--- NOTE | 2020-07-25 01:21 | PC.NURSE ---
Addendum entered by Dina Zuleta R.N. 07/25/20 05:29: States he slept well. Complains of 8/10 low back pain this morning so medicated with Vicodin. Original Note: [id number] Patient seen and assessed. Is alert and oriented sitting on edge of bed. Breath sounds diminished throughout with expiratory wheezes in bilateral LL. Denies SOB at rest but does still get SOB with exertion. Able to speak in complete sentences tonight. Is on oxygen at 2L/min per NC with sat of 92%. HRR but tachy at 102 bpm; telemetry reading at [address] w/BBB and rate of 101. Denies nausea. BT present and is passing flatus. Denies dysuria, frequency or urgency with urination; has been continent. Able to move himself in bed. Up to bathroom with walker and SBA. Complains of 7/10 low back pain so medicated with Vicodin. Declines wearing SCD's so reminded to ankle wave when awake. Fall risk score is high and bed alarm is activated.
[2020-07-25] MEDS: SODIUM CHLORIDE 0.9% FLUSH 10 ML IV ×4 (05:24→23:33)
[2020-07-25] MEDS: methylPREDNISolone 125 MG/2 ML VIAL 60 MG IV ×4 (05:24→23:33)
[2020-07-25] MEDS: HYDROCODONE/ACET 5/325 TABLET 1 TAB PO ×4 (05:24→20:29)
--- NOTE | 2020-07-25 07:10 | P.PN_ITS ---
Subjective Subjective Date Patient Seen: 07/25/20 Time Patient Seen: 07:10 Interval history: Patient sitting up at the edge of the bed. Really has no complaints. Breathing is definitely improved today over where was this time yesterday. Still gets winded with activity patient is working with the discharge planners planning for discharge to detention. Also applying for [facility] Exam Vital Signs (past 8 hours): - 07/24/20 23:14 07/24/20 23:43 07/25/20 04:55 Temperature 96.8 F L 97.0 F L Pulse Rate 105 H 102 H 102 H Respiratory Rate 21 Blood Pressure 152/92 H 167/94 H Pulse Oximetry 93 92 91 Oxygen Delivery Method Nasal Cannula Oxygen Flow Rate 2.0 Objective Labs Result Diagrams: 07/24/20 05:15 07/24/20 05:15 Labs: Laboratory Results - last 24 hr 07/23/20 09:00 ABG pCO2 50.9 H Assessment & Plan Assessment & Plan narrative: 1. COPD exacerbation with possible pneumonia-continue current dose IV steroids and IV antibiotics. May be able to decrease this in the next 24 hours 2. Lung cancer-patient with probable stage IV non-small cell lung cancer. Reviewed images with Radiology yesterday. Concern are E hepatic biopsy given lack of normal hepatic tissue which increases risk of percutaneous biopsy. Patient should have easily accessible lesion within the right subsegmental bronchus on bronchoscopy. That would seemingly be the most reliable and probably safest way to obtain tissue biopsy. Will consult with Oncology over the phone anyway, and ensure patient requires tissue biopsy given the distribution of his end-stage cancer. 3. Hypertension-I am going to add diltiazem to his regimen given his persistent hypertension and its benefit in helping to converted back to sinus rhythm when he went into atrial fibrillation 4. Paroxysmal atrial fibrillation-continues in sinus rhythm with some sinus tachycardia. No changes for now. 5. Disposition-patient will almost certainly need detention placement when ready for discharge. Continue working with discharge planning in this regard. Still probably several days away from discharge. Note: Greater than 30 minutes was spent evaluating the patient on the floor, including examining the patient, discussing clinical course with clinical and nursing staff, reviewing clinical course in the computer, preparing documentation and writing orders for continued management of care, discussing status with family as appropriate, reviewing plans for the next 24 hours with both patient/family and nursing staff as appropriate.
[2020-07-25] MEDS: ALBUTEROL 2.5 MG/3 ML NEB (ADULT) INH (07:34)
[2020-07-25] MEDS: lisinopriL 20 MG TABLET 40 MG PO (08:22)
[2020-07-25] MEDS: ENOXAPARIN 40 MG/0.4 ML SYRINGE SUBCUT (08:22)
[2020-07-25] MEDS: NICOTINE 14 PATCH 14 MG TOP (08:22)
[2020-07-25] MEDS: dilTIAZem CD 180 MG CAP PO (08:22)
[2020-07-25 08:27] LABS: Add Manual Diff / Slide Review NO; Basophils Absolute Auto 0 /uL (0-100); Basophils Percent Auto 0.1 % (0-2); Eosinophils Absolute Auto 0 /uL (0-450); Hematocrit 45.2 % (41-53); Hemoglobin 14.8 g/dL (13.5-17.5); Lymphocytes Absolute Auto 200 /uL (1100-4500); Lymphocytes Percent Auto 1.5 % (25-40); Mean Corpuscular HGB Conc 32.8 % (30-36); Mean Corpuscular Hemoglobin 27.7 PG (26-34); Mean Corpuscular Volume 84.4 fL (80-100); Monocytes Absolute Auto 700 /uL (0-900); Monocytes Percent Auto 4.9 % (3-14); Neutrophils Absolute Auto 13700 /uL (1500-7000); Neutrophils Percent Auto 93.5 % (50-75); Platelet Count 232 X10^3/uL (150-400); Red Blood Cell Count 5.35 X10^6/uL (4.5-5.9); Red Cell Distribution Width 16.7 % (11.6-14.8); White Blood Cell Count 14.7 X10^3/uL (4.5-11.0)
[2020-07-25 08:47] LABS: Alanine Aminotransferase 373 IU/L (<50); Albumin 3.9 g/dL (3.5-5.0); Albumin Globulin Ratio 1.2 (1.0-2.8); Alkaline Phosphatase 369 U/L (38-126); Aspartate Aminotransferase 168 IU/L (17-59); BUN Creatinine Ratio 45.6 (6-22); Bilirubin Total 0.9 mg/dL (0.2-1.3); Blood Urea Nitrogen 72 mg/dL (9-20); Calcium 9.3 mg/dL (8.4-10.2); Carbon Dioxide 29 mmol/L (22-32); Chloride 103 mmol/L (98-107); Estimated Glomerular Filt Rate 44.1 mL/min (>60); Globulin 3.3 g/dL (1.7-4.1); Glucose 156 mg/dL (80-110); HEMOLYSIS < 15 (0-50); Sodium 138 mmol/L (137-145); Total Protein 7.2 g/dL (6.3-8.2)
[2020-07-25 08:48] LABS: Potassium 6.2 mmol/L (3.4-5.1)
[2020-07-25 08:56] LABS: NT-proBNP (BNP-Adult 18+) 146 pg/mL (<125)
--- NOTE | 2020-07-25 10:19 | CM.DPC ---
Addendum entered by Osiris Ray R.N. 07/25/20 12:56: Cm/RN heard back from Nasreen at [facility] and she received approval from [facility]- She can accept patient when ready- insurance authorization is good for the next seven days. Spoke with charge nurse about patient needing a new COVID screening prior to D/C to [facility]. PASRR completed. CM/RN faxed copy of Medicaid application to [facility] for there review. patient updated about SNF approval and stated understanding Osiris Ray RN Original Note: DCp continued: EMR reviewed:CM/RN spoke with Nasreen at [facility] [phone] Nasreen is still waiting on [facility] authorization for patient placement in SNF. [facility] needs patient to do Medicaid huseyin here at the hospital and patient would need to agree that oncology follow up would need to be post SNF stay and no smoking at there facility. Nasreen at [facility] wanted patient to know that he needed to agree to no oncology follow up or biopsy until after SNF care was over. CM/RN spoke with patient and patients brother Slade about this restriction and explained that CM would be more then happy to send a referral to other SNFs or work with them to find other options. Patient and patients brother both agreed that they didn't want to go to another SNF Patient wants to go to [facility] and stated that he will wait on Oncology follow up until after SNF. Patients brother stated he turned in medicaid application today and the patient agreed that he will not smoke while at [facility]. Nasreen stated she will let CM know once [facility] authorization for SNF is received. CM requested from patients nurse that patient get a new COVID swab. Once at [facility] patient will need to have inhalers vrs Neb treatments since SNF no longer are duing NEB treatments due to the risk of aerosolizing COVID. CM will follow up with [facility] for [facility] authorization and D/C plan. PASRR is completed. Osiris Ray RN
--- NOTE | 2020-07-25 10:33 | PT.IPTN ---
Current Diagnoses Chronic obstructive pulmonary disease with (acute) exacerbation (07/21/20) Physical Therapy Treatment Note M2 PT-IP Current Condition Start: 07/22/20 11:22 Freq: NEEDED Status: Active Protocol: Document 07/22/20 10:31 AB (Rec: 07/22/20 11:38 AB [id number]) Physical Therapy Current Condition Current Condition Evaluation Date 07/22/20 Treatment Diagnosis COPD exar; NSTEMI; difficulty in walking Onset Date 07/21/20 Precautions Other Precautions O2 sat with 2L/min O2: 88-91% Falls M3 PT-IP Subjective Start: 07/22/20 11:22 Freq: NEEDED Status: Active Protocol: Document 07/25/20 10:33 MA (Rec: 07/25/20 11:46 MA [email or web address]) Subjective Physical Therapy Visit Type Type Treatment Note Visit Start Time 10:10 Visit Stop Time 10:33 Total Visit Minutes 23 Number of TEST SPECIALIST Visits 1 Physical Therapy Visit Comments Patient Comments Pt states he would like to try and use the bathroom when we get up and that he slept more last night than he has in a week so he feels better today. Pt found with bed alarm on, 2L O2 via NC, all needs within reach. M4 PT-IP Mobility and Gait Start: 07/22/20 11:22 Freq: NEEDED Status: Active Protocol: Document 07/25/20 11:26 MA (Rec: 07/25/20 11:46 MA [email or web address]) PT-Transfer Assessment Sit to and From Stand Sit to and from Stand Contact Guard Assistance,1 Person Assistance,Use of Upper Extremities Equipment Transfer Assistive Device None,Front Wheeled Walker Transfers Transfer Destination Bed,Toilet Transfer Ability Level of Assist Contact Guard Assistance,1 Person Assistance,Use of Upper Extremities Comments Mobility Comments Practiced getting up without FWW. Did 2x5 sit<>stands from bed with no drop in O2 levels Gait Assessment Gait Gait Assistance Required: Contact Guard Assist,1 Person Assist Distance (Feet) 30 Assistive Devices Assistive Device None,Front Wheeled Walker Gait Deviations General Gait Pattern Decreased Stride Length, Decreased Feet Clearance, Flexed Trunk Factors Limiting Gait Function Factors Limiting Gait Function Decreased Activity Tolerance, Decreased Strength,Respiratory Distress Comments Gait Comments Pt ambulated within room with FWW CGA. Pt did not want to go in hallway stating the mask makes it too hard to breathe. Pt ambulated to bathroom and a second lap around the room without FWW, still CGA. Without walker, seemed to be able to focus more on breathing. Between laps, pt needed rest break for O2 level dropped to 86%. After two minute rest break, O2 94%. PT-Balance Assessment Sitting Balance and Reactions Static Sitting Balance Ability Good Dynamic Sitting Balance Ability Good Standing Balance and Reactions Static Standing Balance Ability Good Dynamic Standing Balance Ability Good M5 PT-IP Objective Assessments Start: 07/22/20 11:22 Freq: NEEDED Status: Active Protocol: Document 07/22/20 10:31 AB (Rec: 07/22/20 11:38 AB [id number]) Orientation Orientation/Cognition Level of Alertness Alert Orientation Name,Age,Place,Situation Strength Lower Extremity Strength Assessment Bilaterally Impaired Hip 3+/5 Knee 3+/5 Coordination Assessment Gross Coordination Gross Coordination WNL Muscle Tone Muscle Tone WNL Yes M6 PT-IP Treatment Start: 07/22/20 11:22 Freq: NEEDED Status: Active Protocol: Document 07/24/20 09:47 AB (Rec: 07/24/20 10:26 AB [id number]) Physical Therapy Treatment Education Education Provided Safety M7 PT-IP Assessment and Plan Start: 07/22/20 11:22 Freq: NEEDED Status: Active Protocol: Document 07/25/20 11:26 MA (Rec: 07/25/20 11:46 MA [email or web address]) PT Summary Assessment and Plan Potential Rehabilitation Potential Good Status of Condition at Evaluation Evolving Summary Impairments Pain,ROM,Strength,Balance, Coordination,Sensation,Tone, Bed Mobility,Transfers,Gait, Activity Tolerance Assessment Summary Pt's O2 levels dropped to 86% O2 after first ambulation around room, needing two minute rest break to bring it back up to 94% O2. Pt able to complete 2x5 sit<>stands bedside without O2 dropping. Second ambulation around room, pt did not use FWW and seemed to have an easier time focusing on proper breathing technique. Pt returned to seated EOB with all needs within reach, bed alarm armed. Frequency of Treatment Frequency Of Treatment Once a Day Treatment Plan Physical Therapy Treatment Plan Bed Mobility Training,Transfer Training,Gait Training, Therapeutic Exercise,Balance Retraining,Discharge Planning, Hot or Cold Pack,Neuromuscular Re-ed Recommendations To Nursing Amount of Assist Needed 1 Person Assist Discharge Recommendations PT Discharge Recommendations Home Health,SNF Rehab Transportation Needs at Discharge Wheelchair/Cabulance,Stretcher /Ambulance
[2020-07-25] MEDS: MAGNESIUM HYDROXIDE 30 ML UDC PO (11:08)
[2020-07-25] MEDS: polyethylene glycoL 3350 17 GM POWD.PACK PO (11:29)
[2020-07-25] MEDS: AZITHROMYCIN 500 MG in DEXTROSE 5% IN WATER 250 ML 150 ML IV (13:54)
--- NOTE | 2020-07-25 14:35 | ONC.MSW ---
Left return call message for pt's brother/[id number] re: Oncology questions and f/u. Requested return call.
[2020-07-25] MEDS: ALBUTEROL/IPRATROPIUM 3 ML AMPUL INH ×3 (15:22→23:55)
[2020-07-25] MEDS: CEFTRIAXONE 2 GM/50 ML FROZ.PIGGY IV (15:57)
[2020-07-26] VITALS (13 sets, daily range): BP systolic 141–147; BP diastolic 79–99; PULSE 75–101; RESP 16–24; TEMP 36.7–37.1; O2SAT 92–94
--- NOTE | 2020-07-26 00:18 | PC.NURSE ---
Addendum entered by Dina Zuleta R.N. 07/26/20 05:24: Medicated for 05/15 sharp, chronic, low back pain with Vicodin. Has not slept tonight. Original Note: 2347 Patient is alert and oriented. Breath sounds diminished throughout but CTA; oxygen at 2L/min per NC with sat of 94%. States he is feeling a little SOB at rest but still able to converse in complete sentences; is SOB with any exertion. HRR; telemetry reading was SR w/BBB. BP continues to be elevated at 154/89. Denies nausea. BT hypoactive; reports having had BM 07/25. Denies dysuria or urgency with urination but has some frequency and is continent. Is able to move himself in bed. When up is using walker and SBA for safety due to some LE weakness. Refuses SCD's. Complains of low back pain and had Vicodin at 2028; made aware he can have additional Vicodin at 0030 if he needs. Has 2+ bilateral LE edema. Fall risk score is high and bed alarm is activated.
[2020-07-26] MEDS: ALBUTEROL 2.5 MG/3 ML NEB (ADULT) INH (04:32)
[2020-07-26] MEDS: methylPREDNISolone 125 MG/2 ML VIAL 60 MG IV (05:13)
[2020-07-26] MEDS: HYDROCODONE/ACET 5/325 TABLET 1 TAB PO ×2 (05:14→21:23)
[2020-07-26] MEDS: SODIUM CHLORIDE 0.9% FLUSH 10 ML IV ×3 (05:14→21:24)
[2020-07-26 06:34] LABS: Add Manual Diff / Slide Review NO; Basophils Absolute Auto 0 /uL (0-100); Basophils Percent Auto 0.1 % (0-2); Eosinophils Absolute Auto 0 /uL (0-450); Eosinophils Percent Auto 0.1 % (2-4); Hematocrit 45.3 % (41-53); Hemoglobin 14.5 g/dL (13.5-17.5); Lymphocytes Absolute Auto 200 /uL (1100-4500); Lymphocytes Percent Auto 1.1 % (25-40); Mean Corpuscular Hemoglobin 27.1 PG (26-34); Mean Corpuscular Volume 84.8 fL (80-100); Monocytes Absolute Auto 1000 /uL (0-900); Monocytes Percent Auto 6.3 % (3-14); Neutrophils Absolute Auto 14800 /uL (1500-7000); Neutrophils Percent Auto 92.4 % (50-75); Platelet Count 229 X10^3/uL (150-400); Red Blood Cell Count 5.35 X10^6/uL (4.5-5.9); Red Cell Distribution Width 16.6 % (11.6-14.8)
[2020-07-26 06:36] LABS: Alanine Aminotransferase 431 IU/L (<50); Albumin 3.7 g/dL (3.5-5.0); Albumin Globulin Ratio 1.1 (1.0-2.8); Alkaline Phosphatase 365 U/L (38-126); Aspartate Aminotransferase 156 IU/L (17-59); BUN Creatinine Ratio 40.3 (6-22); Bilirubin Total 0.8 mg/dL (0.2-1.3); Blood Urea Nitrogen 79 mg/dL (9-20); Carbon Dioxide 29 mmol/L (22-32); Chloride 100 mmol/L (98-107); Estimated Glomerular Filt Rate 34.4 mL/min (>60); Globulin 3.4 g/dL (1.7-4.1); Glucose 187 mg/dL (80-110); HEMOLYSIS < 15 (0-50); Sodium 132 mmol/L (137-145); Total Protein 7.1 g/dL (6.3-8.2)
[2020-07-26 06:43] LABS: NT-proBNP (BNP-Adult 18+) 124 pg/mL (<125)
[2020-07-26 06:47] LABS: Potassium 6.7 mmol/L (3.4-5.1)
--- NOTE | 2020-07-26 08:11 | P.PN_ITS ---
Subjective Subjective Date Patient Seen: 07/26/20 Time Patient Seen: 08:12 Interval history: Patient says breathing continues to be improved day-to-day today. Having trouble sleeping at night that is his biggest complaint. He was quite annoyed this morning when he was wide awake in the wee hours of the morning when the generator Test happened and course power was cut to his television which would be annoying I would agree Exam Vital Signs (past 8 hours): - 07/26/20 03:38 07/26/20 04:32 Temperature 98.3 F Pulse Rate 79 80 Respiratory Rate 18 18 Blood Pressure 145/79 H Pulse Oximetry 94 94 Oxygen Delivery Method Nasal Cannula Oxygen Flow Rate 2 Narrative Exam Narrative: Obese middle-aged male in no obvious distress looking to be less respiratory compromise them before sitting on the edge of his bed looking out the window HEENT-unremarkable Lungs-clear, very diminished breath sounds consistent with baseline, no crackles no wheezes Heart-regular rate and rhythm Abdomen-benign Objective Labs Result Diagrams: 07/26/20 06:07 07/26/20 06:07 Labs: Laboratory Results - last 24 hr 07/25/20 07/25/20 07/26/20 08:04 08:04 06:07 WBC 14.7 H 16.0 H RBC 5.35 5.35 Hgb 14.8 14.5 Hct 45.2 45.3 MCV 84.4 84.8 MCH 27.7 27.1 MCHC 32.8 32.0 RDW 16.7 H 16.6 H Plt Count 232 229 Neut % (Auto) 93.5 H 92.4 H Lymph % (Auto) 1.5 L 1.1 L Davis % (Auto) 4.9 6.3 Eos % (Auto) 0.0 L 0.1 L Baso % (Auto) 0.1 0.1 Neut # (Auto) 42874 H 96785 H Lymph # (Auto) 200 L 200 L Davis # (Auto) 700 1000 H Eos # (Auto) 0 0 Baso # (Auto) 0 0 Sodium 138 Potassium 6.2 H Chloride 103 Carbon Dioxide 29 BUN 72 H Creatinine 1.58 H Estimated GFR 44.1 L BUN/Creatinine Ratio 45.6 H Glucose 156 H Calcium 9.3 Total Bilirubin 0.9 AST 168 H ALT 373 H Alkaline Phosphatase 369 H NT-Pro-B Natriuret Pep 146 H Total Protein 7.2 Albumin 3.9 Globulin 3.3 Albumin/Globulin Ratio 1.2 07/26/20 06:07 WBC RBC Hgb Hct MCV MCH MCHC RDW Plt Count Neut % (Auto) Lymph % (Auto) Davis % (Auto) Eos % (Auto) Baso % (Auto) Neut # (Auto) Lymph # (Auto) Davis # (Auto) Eos # (Auto) Baso # (Auto) Sodium 132 L Potassium 6.7 H* Chloride 100 Carbon Dioxide 29 BUN 79 H Creatinine 1.96 H Estimated GFR 34.4 L BUN/Creatinine Ratio 40.3 H Glucose 187 H Calcium 9.0 Total Bilirubin 0.8 AST 156 H ALT 431 H Alkaline Phosphatase 365 H NT-Pro-B Natriuret Pep 124 Total Protein 7.1 Albumin 3.7 Globulin 3.4 Albumin/Globulin Ratio 1.1 Assessment & Plan Assessment & Plan narrative: 1. COPD exacerbation/pneumonia-continues to improve. Will switch to oral steroids and has been switched to oral azithromycin. I think I can discontinue the IV ceftriaxone at this point. 2. Lung cancer-this point will set up an outpatient oncology appointment. He is also going to need to be seen by Pulmonary Medicine for consideration of bronchoscopy. I discussed with our local surgeons they do not do bronchoscopy and so will be unable to get a tissue diagnosis that way. After discussions with radiology it seems clear that bronchoscopy is by far the best and safest method to obtain tissue for diagnosis. 3. Hyperkalemia-unsure as to etiology of patient's hyperkalemia and mild decrease in GFR. Patient has been rather active in ingesting various tomato juice is such as be 8 which may have a significant potassium load. Will discontinue this. I am also going to discontinue his lisinopril which he may ever not been taking as an outpatient. Will rehydrate him a bit with some IV fluids and control blood pressure with diltiazem. Plan to repeat GFR/renal function/electrolytes tomorrow. 4. Paroxysmal atrial fibrillation-patient continues in sinus rhythm. 5. Disposition-patient is improving with physical therapy. Plan for discharge to long term probably on Friday the at this point. Will need another couple of days in the hospital to help manage his medications and his new electrolyte disturbances etcetera Note: Greater than 30 minutes was spent evaluating the patient on the floor, including examining the patient, discussing clinical course with clinical and nursing staff, reviewing clinical course in the computer, preparing documentation and writing orders for continued management of care, discussing status with family as appropriate, reviewing plans for the next 24 hours with both patient/family and nursing staff as appropriate.
[2020-07-26] MEDS: ALBUTEROL/IPRATROPIUM 3 ML AMPUL INH ×4 (08:21→18:12)
[2020-07-26 08:36] LABS: HEMOLYSIS 55 (0-50)
[2020-07-26] MEDS: INSULIN ASPART 100 UNIT/ML INSULN PEN SUBCUT ×3 (08:37→17:26)
[2020-07-26] MEDS: SODIUM CHLORIDE 0.9% 500 ML 1000 ML IV (08:37)
[2020-07-26] MEDS: polyethylene glycoL 3350 17 GM POWD.PACK PO (08:38)
[2020-07-26] MEDS: ENOXAPARIN 40 MG/0.4 ML SYRINGE SUBCUT (08:43)
[2020-07-26] MEDS: NICOTINE 14 PATCH 14 MG TOP (08:44)
[2020-07-26] MEDS: dilTIAZem CD 240 MG CAP PO (08:44)
[2020-07-26] MEDS: AZITHROMYCIN 250 MG TABLET 500 MG PO (08:44)
[2020-07-26] MEDS: predniSONE 10 MG TABLET 30 MG PO ×2 (08:55→21:17)
[2020-07-26] MEDS: DEXTROSE 50 % IN WATER 25 GM/50 ML SYRINGE IV (09:51)
[2020-07-26] MEDS: INSULIN REGULAR 100 UNIT/ML 3 ML VIAL 10 UNIT IV (09:51)
[2020-07-26] MEDS: CALCIUM GLUCONATE 4.65 MEQ in SODIUM CHLORIDE 0.9% 50 ML 180 ML IV (09:54)
[2020-07-26 11:32] LABS: HEMOLYSIS 30 (0-50)
[2020-07-26 11:34] LABS: Potassium 6.4 mmol/L (3.4-5.1)
--- NOTE | 2020-07-26 11:51 | PT-IP ANOTE ---
Pt declined therapy x2 attempts stating very tired, didn't sleep well and just wants to rest. CONSULTING PROJECT DIRECTOR educated in benefits of participation in therapy with verbal understanding, declined recommendation of returning in afternoon but wants to hold off until tomorrow. Therapy will return in morning.
--- NOTE | 2020-07-26 15:31 | PC.NURSE ---
Dr. Bolivar notifed of K+ level and then again when a repeat was done. See new orders. Pt recieved glucose, CA+, insulin, ect. Repeat K+ at 1100 was called to the office. Ashly will notify either Katt or Angie but she didn't think any further orders would occur until tomorrow when he has his repeat labs. Pt has had no c/p, is on tele and ICU reports no tele changes. No sxs of increased K+
--- NOTE | 2020-07-26 23:15 | PC.NURSE ---
is aware regarding pt's potassium at 6.4. no new orders. continue to monitor.
[2020-07-27] VITALS (14 sets, daily range): BP systolic 132–187; BP diastolic 70–95; PULSE 80–99; RESP 16–24; TEMP 36.4–37.2; O2SAT 92–97
--- NOTE | 2020-07-27 02:47 | PC.NURSE ---
Addendum entered by La Nena Mooney R.N. 07/27/20 05:51: K+ reported as 6.7. Called to Dr. Adams. orders given for D5 and insulin Original Note: Pt c/o of being uncomfortable in any position. Requests back rub which helps relax him temporarily. Pt observed to be sleeping for less than a half hour at a time. Up to chair to try to find a comfortable position. Pt very distressed because he is so uncomfortable.
[2020-07-27] MEDS: ALBUTEROL/IPRATROPIUM 3 ML AMPUL INH ×3 (03:25→17:04)
[2020-07-27 05:43] LABS: BUN Creatinine Ratio 47.5 (6-22); Blood Urea Nitrogen 76 mg/dL (9-20); Calcium 8.9 mg/dL (8.4-10.2); Carbon Dioxide 30 mmol/L (22-32); Chloride 100 mmol/L (98-107); Estimated Glomerular Filt Rate 43.5 mL/min (>60); Glucose 144 mg/dL (80-110); HEMOLYSIS < 15 (0-50); Sodium 131 mmol/L (137-145)
[2020-07-27 05:51] LABS: Potassium 6.7 mmol/L (3.4-5.1)
[2020-07-27] MEDS: CALCIUM GLUCONATE 4.65 MEQ in SODIUM CHLORIDE 0.9% 50 ML 180 ML IV (06:51)
[2020-07-27] MEDS: DEXTROSE 50 % IN WATER 25 GM/50 ML SYRINGE IV (06:52)
[2020-07-27] MEDS: INSULIN REGULAR 100 UNIT/ML 3 ML VIAL 10 UNIT IV (06:52)
--- NOTE | 2020-07-27 07:41 | DI.CT.S_ITS ---
PROCEDURE: CT ABDOMEN PELVIS WO CON INDICATIONS: lung cancer/nausea/TARSHA TECHNIQUE: After the administration of oral contrast, 5 mm thick sections acquired from the diaphragms to the symphysis. 5 mm coronal and sagittal reformats were performed. For radiation dose reduction, the following was used: automated exposure control, adjustment of mA and/or kV according to patient size. COMPARISON: [facility], CT, CT CHEST ABD PEL W CON, 07/21/2020, 14:46. FINDINGS: Image quality: Excellent. ABDOMEN: Lung bases: Patient's known right perihilar malignant mass is partially visualized on this study. Left lung base is clear. Heart size is normal. Solid organs: Liver is enlarged in size containing extensive liver metastases better evaluated on previous contrast enhanced study and are grossly unchanged.. Gallbladder is within normal limits.. Pancreas is normal in size. Spleen is normal in size. No adrenal nodules. Both kidneys are normal in size, without hydronephrosis or nephrolithiasis. Peritoneum and bowel: Bowel loops demonstrate normal wall thickness and caliber. No free fluid or air. Extensive colonic diverticulosis is seen, no CT evidence of acute diverticulitis. Nodes and vessels: No retroperitoneal or mesenteric adenopathy by size criteria. Aorta and inferior vena cava are normal in size. Miscellaneous: No ventral hernias. PELVIS: Genitourinary: Bladder wall thickness is normal. Miscellaneous: No inguinal hernias or adenopathy. Bones: No suspicious bony lesions. No vertebral body compression fractures. Degenerative disc disease throughout lumbar spine and lower thoracic spine is again seen. Minimal anterolisthesis of L4 on L5 is again noted and unchanged. IMPRESSION: 1. Extensive liver metastases not significantly changed from recent study. 2. Patient's known right perihilar mass is partially visualized on the current study. 3. No bowel obstruction. No free fluid or free air. No abnormal bowel wall thickening. Extensive colonic diverticulosis, no evidence of acute diverticulitis. 4. No renal stone or hydronephrosis. Normal appearing bilateral ureters and urinary bladder. Dictated by: Cesar Song M.D. on 07/27/2020 at 8:21 Approved by: Cesar Song M.D. on 07/27/2020 at 8:25
--- NOTE | 2020-07-27 07:42 | PM.PN.1 ---
Subjective Subjective Date Patient Seen: 07/27/20 Time Patient Seen: 07:42 Interval history: Patient complaining of nausea this morning. Says it has come and gone since admission but has been bad the last maybe couple of days. Had 2 bowel movements yesterday. Appetite does not seem to be affected. Lab work this morning shows persistent elevation of his potassium and evidence of acute kidney injury which has begun since his admission Breathing has been up and down again good mornings good days bad days bad nights etcetera. Overall was too fatigued and or feeling too poorly to be up with physical therapy yesterday Exam Vital Signs (past 8 hours): - 07/27/20 00:00 07/27/20 03:25 07/27/20 04:30 Temperature 98.0 F 98.6 F Pulse Rate 85 80 81 Respiratory Rate 16 20 19 Blood Pressure 142/72 H 151/88 H Pulse Oximetry 95 95 Oxygen Delivery Method Nasal Cannula Oxygen Flow Rate 2 Narrative Exam Narrative: Obese male lying in his hospital bed who looks generally uncomfortable but not in a specific way HEENT-unremarkable Lungs-very diminished breath sounds similar yesterday and baseline Heart-regular rate and rhythm Abdomen-distended and quite obese positive bowel tones no rebound or guarding Objective Labs Result Diagrams: 07/26/20 06:07 07/27/20 05:22 Labs: Laboratory Results - last 24 hr 07/26/20 07/26/20 07/27/20 08:21 11:00 05:22 Sodium 131 L Potassium 7.0 H* 6.4 H* 6.7 H* Chloride 100 Carbon Dioxide 30 BUN 76 H Creatinine 1.60 H Estimated GFR 43.5 L BUN/Creatinine Ratio 47.5 H Glucose 144 H Calcium 8.9 Assessment & Plan Assessment & Plan narrative: 1. COPD exacerbation-continue with nebulizers/inhalers while here as well as oral steroids and I have convert him to oral antibiotic therapy. He has now had 6 days of antibiotic therapy which should be sufficient. I wonder about the azithromycin causing some of his GI symptoms. I am therefore going to discontinue that, feeling as though he has probably had a sufficient course. 2. Acute kidney injury and hyperkalemia-no good etiology for this at this point. I wonder if it is related somehow to his intra-abdominal malignancy etcetera. I think given his GI symptoms and these findings he needs to be imaged in his abdomen. Will order a non IV contrast enhanced CT scan of the abdomen and pelvis for evaluation. He was given another dose of calcium gluconate and I will give him some Kayexalate orally. That also help with his constipation should he be still somewhat constipated 3. GI-patient with significant nausea. Reports bowel movement yesterday. Still wonder about possible constipation given his long-term use of narcotics. He will be given Kayexalate as above for his hyperkalemia which will help with constipation. Plan to image him as well. I wonder about the azithromycin as a potential cause of his GI symptoms. I think that can be discontinued as above. 4. Lung cancer-patient with appointment in Oncology next week. Again if tissue diagnosis is required (which seems likely) than patient would probably need to have bronchoscopy performed as that would be the safest method per DI to obtain tissue 5. Hypertension-patient with adequate control blood pressure on current meds. No change. 6. Patient with peak blood sugar 230 to yesterday at noon. Continue to monitor and treat with coverage insulin. Again hoping that as we switched him to oral corticosteroids his numbers will begin to improve. 7. Disposition-patient is approved for discharge to intermediate when medically stable. I was hopeful that this would be possible tomorrow although given number of issues above it seems a bit less likely. Continue to monitor day by day.
[2020-07-27] MEDS: polyethylene glycoL 3350 17 GM POWD.PACK PO (08:13)
[2020-07-27] MEDS: predniSONE 10 MG TABLET 30 MG PO ×2 (08:13→21:48)
[2020-07-27] MEDS: SODIUM POLYSTYRENE SULFON/SORB 15 GM/60 ML CUP PO (08:14)
[2020-07-27] MEDS: NICOTINE 14 PATCH 14 MG TOP (08:14)
[2020-07-27] MEDS: dilTIAZem CD 240 MG CAP PO (08:14)
[2020-07-27] MEDS: ENOXAPARIN 40 MG/0.4 ML SYRINGE SUBCUT (08:14)
[2020-07-27] MEDS: SODIUM CHLORIDE 0.9% FLUSH 10 ML IV ×2 (08:19→21:48)
--- NOTE | 2020-07-27 08:49 | RT ---
pt states he can only do 5 breathes, having issues pushing air out.
--- NOTE | 2020-07-27 10:07 | ONC.MSW ---
Late Entry: T/C visit 07/26/20 Description: Care Coordination T/C Activity: CERTIFIED CONTROL SYSTEMS TECHNICIAN spoke with pt's brother/DPOA re: coordination of Oncology f/u and plan for rehab. CERTIFIED CONTROL SYSTEMS TECHNICIAN explained that even though he will be in rehab, pt is still able to come for his initial Oncology visit w/provider, as well as get started with scheduling biopsy, we just can't start active chemotherapy until he is discharged from the SNF. Family is in agreement. Scheduled him for 08/02 at 3:00pm. Called Nasreen at [facility], discussed the plan for Oncology and plan for his appointment next week. Updated Care Management.
--- NOTE | 2020-07-27 13:07 | PT-IP ANOTE ---
Pt refused therapy x2 today, stating he is very tired after shower and xray and requested to rest. Pt aware he only has PT 1x/day. Encouraged pt to ambulate around room w/ nursing staff later today if he feels capable.
--- NOTE | 2020-07-27 17:26 | PC.NURSE ---
Addendum entered by Rosa Sanchez R.N. 07/27/20 22:32: Pt continues w/SOB w/excertion. SpO2 93% 2L. HS CBG 112, no coverage required. Relatively uneventful evening. Call light w/in reach, pt sitting on edge of bed. Continue w/plan of care. Original Note: Pt sitting on edge of bed. Lungs w/wheezes noted. SpO2 92% 2L HL LFA intact/patent. AC CBG 95, not coverage required. Call light w/in reach, bed alarm on for pt safety.
[2020-07-27] MEDS: HYDROCODONE/ACET 5/325 TABLET 1 TAB PO (23:53)
[2020-07-28] VITALS (9 sets, daily range): BP systolic 134–161; BP diastolic 65–99; PULSE 82–114; RESP 18–26; TEMP 36.2–36.9; O2SAT 91–97
[2020-07-28] MEDS: ALBUTEROL/IPRATROPIUM 3 ML AMPUL INH ×4 (00:36→19:05)
[2020-07-28 06:12] LABS: BUN Creatinine Ratio 52.3 (6-22); Blood Urea Nitrogen 58 mg/dL (9-20); Calcium 8.8 mg/dL (8.4-10.2); Carbon Dioxide 32 mmol/L (22-32); Chloride 97 mmol/L (98-107); Estimated Glomerular Filt Rate > 60.0 mL/min (>60); Glucose 114 mg/dL (80-110); HEMOLYSIS < 15 (0-50); Sodium 130 mmol/L (137-145)
[2020-07-28 06:13] LABS: Potassium 5.4 mmol/L (3.4-5.1)
--- NOTE | 2020-07-28 07:10 | PM.PN.1 ---
Subjective Subjective Date Patient Seen: 07/28/20 Time Patient Seen: 07:10 Interval history: Patient still having significant nausea this morning. Had this most a day yesterday. Does not appear to affected his appetite however. Not having any emesis period but sitting up in looks quite uncomfortable. Still fairly dyspneic with activity and even just sitting here at rest. However says his breathing is certainly better than it was upon admission and does go up and down. He is feeling poorly enough that he refused to participate with physical therapy again yesterday. That is 2 days in a row he has not done anything with physical therapy Exam Vital Signs (past 8 hours): - 07/27/20 23:35 07/27/20 23:55 07/28/20 04:10 Temperature 97.9 F 97.8 F Pulse Rate 99 H 98 H Respiratory Rate 24 24 Blood Pressure 132/95 H 158/95 H Pulse Oximetry 94 94 93 Oxygen Delivery Method Nasal Cannula Oxygen Flow Rate 2 Narrative Exam Narrative: Uncomfortable appearing, older than stated age appearing middle-age male sitting at the edge of the bed with increased work of breathing (however this appears stable for him) HEENT-unremarkable Lungs-very diminished breath sounds bilaterally. No wheezes no crackles Heart-regular rate and rhythm Abdomen-obese and distended no rebound guarding or tenderness. Size limits exam but positive bowel tones Extremities-trace edema at the ankles Objective Labs Result Diagrams: 07/26/20 06:07 07/28/20 05:48 Labs: Laboratory Results - last 24 hr 07/28/20 05:48 Sodium 130 L Potassium 5.4 H D Chloride 97 L Carbon Dioxide 32 BUN 58 H Creatinine 1.11 Estimated GFR > 60.0 BUN/Creatinine Ratio 52.3 H Glucose 114 H Calcium 8.8 Assessment & Plan Assessment & Plan narrative: 1. COPD exacerbation with possible pneumonia-patient completed a course of antibiotics and I discontinued his azithromycin which I was hoping was a significant portion of his GI symptoms. He is continuing on albuterol and oral corticosteroids at 30 mg b.i.d.. Breathing seems improved I am not sure how much better he is going to get but will continue with current meds without change 2. GI-uncertain as to the etiology of patient's ongoing GI symptoms. I thought that perhaps the azithromycin was playing a role but that appears less likely at this point. Perhaps he has got element of gastritis from the high-dose steroids. I am going to start him on a proton pump inhibitor. Also on his CT scan done yesterday while there were no new findings he was still fairly full of stool. I think aggressive efforts to clean him out would also be appropriate. He had a tremendous appetite upon admission and was eating pretty much everything in sight and I think would benefit from work on ensuring we clear out his bowels. Given his ongoing GI symptoms however I am uncomfortable discharging him to care home today. 3. Renal/electrolytes-patient's renal functions returned to normal in his electrolytes are also normal. Etiology of his abnormalities is unclear to me at this point. CT scan done yesterday again did not show evidence of ureteral obstruction or any other etiology. We have minimize medications may have an impact on both his renal function and his electrolytes etcetera. No changes made today. 4. Hypertension-patient is tolerating the diltiazem without difficulty both blood pressure is still elevated. I am going to increase his dose of the times when after bring his blood pressure down. 5. Lung cancer-patient With appointment at [facility] on August 02 at 15:00. Will defer further management to Oncology at this point. Discussed again with patient that he has stage IV lung cancer based on what we already know. The only question is what exactly on a molecular basis is his type and what would be the most appropriate way to intervene with some sort of treatment, presumably chemotherapy. I again I iterated to him that he is not a candidate for surgical intervention and that his cancer is not curative but we might be able to slow down the progression depending on what exactly his cell type and other markers are 6. Atrial fibrillation-patient with a single episode of atrial fibrillation soon after admission last week. Has remained in sinus rhythm since. I am going to discontinue telemetry at this point. 7. Hyperglycemia-patient's blood sugars as expected are much better since I DC the IV steroids and have continued him on a slightly lower overall dose of oral steroids only. Continue to monitor carefully and continue on a carb consistent diet 8. Disposition-patient is scheduled to go to care home when ready for discharge from the hospital. Given his active issues above that are enough to interfere with his physical therapy I feel uncomfortable sending him out of the hospital today. Hopefully with above measures symptoms will begin to improve and he will be appropriate for discharge tomorrow. I have completed his discharge meds etcetera to the best my ability including sending a prescription for his hydrocodone and his lorazepam to the long-term care pharmacy. Note: Greater than 40 minutes was spent evaluating the patient on the floor, including examining the patient, discussing clinical course with clinical and nursing staff, reviewing clinical course in the computer, preparing documentation and writing orders for continued management of care, discussing status with family as appropriate, reviewing plans for the next 24 hours with both patient/family and nursing staff as appropriate.
[2020-07-28] MEDS: HYDROCODONE/ACET 5/325 TABLET 1 TAB PO (08:35)
[2020-07-28] MEDS: NICOTINE 14 PATCH 14 MG TOP (08:35)
[2020-07-28] MEDS: predniSONE 10 MG TABLET 30 MG PO ×2 (08:35→21:11)
[2020-07-28] MEDS: PANTOPRAZOLE 40 MG TABLET PO ×2 (08:38→21:11)
[2020-07-28] MEDS: ENOXAPARIN 40 MG/0.4 ML SYRINGE SUBCUT (08:40)
[2020-07-28] MEDS: polyethylene glycoL 3350 17 GM POWD.PACK PO (08:40)
--- NOTE | 2020-07-28 11:03 | PC.NURSE ---
Addendum entered by Jenn Salvador R.N. 07/28/20 12:57: Patient given vicodin earlier. His blood sugar at lunch was wnl and no ss insulin needed this shift. Appetite is good, patient does get depressed at times, but has been completely cooperative and pleasant all shift. Original Note: Patient is having a hard time with sob on exertion. He is on 2l of o2 and sats in the mid 90s. Abdomen is bloated. Patient states that he was having some nausea. Patient had a large bowel movement it seems that this has made him feel a bit better. BS wnl and no insulin needed.
[2020-07-28] MEDS: dilTIAZem CD 120 MG CAP PO (11:36)
[2020-07-28] MEDS: dilTIAZem CD 180 MG CAP PO (11:36)
--- NOTE | 2020-07-28 12:06 | DIET.PN ---
Dietary Progress Note RD visit c pt r/t prolonged LOS, pt having nausea secondary to constipation (2 BM in past 24h, resolving) and elevated potassium, now less so as pt has not been drinking V8 juice. Pt lives [facility], has done all own shopping and cooking. Pt was looking forward to [facility]elling [facility] as it is in poor condition and the refrigeration is going out. Pt feels he will need help c shopping and cooking moving forward and not sure what to do regarding home remodel. Usual day: B: cold cereal c whole milk L: pork chop or chicken dish D: stir trent (chicken c broccoli) and rice Educated pt on commonly eaten foods high in K+ including banana, potato, tomato juice. Encouraged pt to limit intake to one serving per day of high K+ foods.
[2020-07-28 13:54] LABS: Alanine Aminotransferase 502 IU/L (<50); Albumin 3.3 g/dL (3.5-5.0); Albumin Globulin Ratio 1.1 (1.0-2.8); Alkaline Phosphatase 294 U/L (38-126); Aspartate Aminotransferase 229 IU/L (17-59); Bilirubin Total 1.6 mg/dL (0.2-1.3); Bilirubin Unconjugated 0.7 mg/dL (0.0-1.1); Globulin 2.9 g/dL (1.7-4.1); HEMOLYSIS 17 (0-50); Total Protein 6.2 g/dL (6.3-8.2)
--- NOTE | 2020-07-28 15:46 | PT-IP ANOTE ---
Attempted to see pt at 1520 and pt was sleeping soundly. Woke him up but pt refused PT. Explained to him regarding goals of therapy and POC but he resisted d/t fatigue and sleepy. Will recheck pt tomorrow morning. Spoke to DEE Cesar and pt will most likely go to SNF tomorrow.
[2020-07-28] MEDS: INSULIN ASPART 100 UNIT/ML INSULN PEN SUBCUT (21:12)
[2020-07-28] MEDS: SODIUM CHLORIDE 0.9% FLUSH 10 ML IV (21:23)
[2020-07-29] VITALS (10 sets, daily range): BP systolic 138–163; BP diastolic 69–82; PULSE 70–89; RESP 17–24; TEMP 36.4–36.9; O2SAT 92–95
[2020-07-29] MEDS: ALBUTEROL 2.5 MG/3 ML NEB (ADULT) INH (02:39)
[2020-07-29] MEDS: HYDROCODONE/ACET 5/325 TABLET 1 TAB PO (06:38)
[2020-07-29] MEDS: PANTOPRAZOLE 40 MG TABLET PO (06:42)
[2020-07-29] MEDS: ALBUTEROL/IPRATROPIUM 3 ML AMPUL INH ×2 (08:01→11:38)
[2020-07-29] MEDS: ENOXAPARIN 40 MG/0.4 ML SYRINGE SUBCUT (09:09)
[2020-07-29] MEDS: predniSONE 10 MG TABLET 30 MG PO (09:10)
[2020-07-29] MEDS: NICOTINE 14 PATCH 14 MG TOP (09:10)
[2020-07-29] MEDS: SODIUM CHLORIDE 0.9% FLUSH 10 ML IV (09:11)
[2020-07-29] MEDS: dilTIAZem CD 180 MG CAP PO (09:11)
[2020-07-29] MEDS: polyethylene glycoL 3350 17 GM POWD.PACK PO (09:11)
[2020-07-29] MEDS: HYDROCODONE/ACET 5/325 TABLET 2 TAB PO (10:41)
--- NOTE | 2020-07-29 11:08 | P.DS_ITS ---
History of Present Illness History of Present Illness Chief complaint: COPD Discharge Providers Provider Date of admission: 07/21/20 16:28 Discharge Date: 07/29/20 Primary care physician: Rashaad Bolivar MD Consults: 07/22/20 08:17 Consult to Physical Therapy Evaluate & Treat Comment: Physician Instructions: Evaluate and Treat 07/24/20 07:53 Consult to Discharge Planning Routine Comment: Discharge provider: Stepan Mera MD Summary Hospital Course Discharge Diagnosis: 1. COPD. 2. Lung cancer metastasized to liver 3. Persistent nausea no obvious etiology 4. Constipation is resolved. Hospital Course: Patient was admitted for evaluation of his room respiratory status. He he does need to have pre-existing lung cancer. This was felt to be exacerbation of his COPD. Given IV antibiotics and IV steroids and is of cough and congestion improved. He was having some nausea felt secondary to his medications of this was discontinued. Nausea has essentially resolved a denies any nausea today. He has some diste nded abdomen and the some abdominal discomfort otherwise the no major complaints. Has appointment see Dr. crowell [facility] on Friday the . Exam Vital Signs (past 8 hours): - 07/29/20 06:34 07/29/20 08:00 07/29/20 08:04 Temperature 97.5 F L Pulse Rate 89 78 Respiratory Rate 24 20 Blood Pressure 163/72 H Pulse Oximetry 92 94 95 07/29/20 09:11 Temperature 98.2 F Pulse Rate 70 Respiratory Rate 18 Blood Pressure 144/82 H Pulse Oximetry 94 Oxygen Delivery Method Nasal Cannula Oxygen Flow Rate 2 Narrative Exam Narrative: Patient resting quietly in his hospital bed appears in no distress. Lungs are decreased breath sounds throughout. Heart regular rhythm no murmur gallop. Abdominal exam seem he seems distended normal bowel sounds minimal tenderness no rebound Objective Labs Result Diagrams: 07/26/20 06:07 07/28/20 05:48 Labs: Laboratory Results - last 24 hr 07/28/20 05:46 Total Bilirubin 1.6 H Conjugated Bilirubin 0.0 Unconjugated Bilirubin 0.7 AST 229 H ALT 502 H Alkaline Phosphatase 294 H Total Protein 6.2 L Albumin 3.3 L Globulin 2.9 Albumin/Globulin Ratio 1.1 labs reviewed Discharge Assessment & Plan Assessment and Plan Assessment: Patient is basically stable rest per referral to his of chronic problems. Those include lung cancer metastatic to liver. Additionally has COPD and benefits from nasal oxygen. He is on oral steroids and will continue on same. Antibiotics have been stopped. He will be transferred to his [facility] rehab [facility] for physical therapy. He will be seen by a Dr. Baltazar oncology at [facility] on the . Discharge Plan Discharge Plan Patient Disposition: SNF Transfer to: [facility] Under care of provider: staff Consult as needed: Dental, Hearing, Mental health, Podiatry and Vision Provider Discharge Comment: nasal O2 @ 2l/m Discharge orders & Medications Prescriptions: New diltiazem HCl [Cardizem CD] 240 mg Capsule,Extended Release 24hr 240 mg PO DAILY Qty: 30 RF: 1 polyethylene glycol 3350 17 gram Powder In Packet 17 gram PO DAILY Qty: 30 RF: 1 prednisone 10 mg Tablet 30 mg PO BID Qty: 60 RF: 0 lorazepam 1 mg tablet 1 mg PO TID PRN (Reason: dyspnea) Qty: 30 RF: 0 omeprazole 40 mg capsule,delayed release(DR/EC) 40 mg PO BID Qty: 60 RF: 0 hydrocodone-acetaminophen [[place]] 5-325 mg tablet 1 - 2 tab PO Q4HP PRN (Reason: pain in back) Qty: 90 RF: 0 Continued Combivent Respimat 20-100 mcg/actuation mist 2 puff inhalation QID Qty: 12 RF: 3 albuterol sulfate [ProAir HFA] 90 mcg/actuation HFA aerosol inhaler 2 puff inhalation Q2-3H PRN (Reason: shortness of breath or wheezing) Qty: 17 RF: 5 Discontinued albuterol sulfate 2.5 MG/3 ML solution for nebulization 3 ml INH Q4HP PRNQty: 120 RF: 11 ibuprofen 600 mg tablet 600 mg PO TIDP PRNQty: 150 RF: 3 lisinopril 40 mg tablet 40 mg PO QDAY Qty: 90 RF: 3 Follow up/Referrals: Rashaad Bolivar MD [Primary Care Provider] - (after discharge from SNF) Discharge Health Status Multidrug resistant organism: No MDRO Precautions: [place] Diet/Activity/Treatments Diet: Diet as Tolerated and Carb-consistent/Diabetic Liquid consistency: Normal/Thin Food texture: Regular [facility] Reason for rehabilitation: Recovery r/t decondition Rehab type: Physical therapy Discharge Data Primary Care Provider: Rashaad Bolivar
--- NOTE | 2020-07-29 11:16 | CM.DPC ---
DCP continued: EMR Reviewed: patient is being D/C to [facility] today at 2pm, Cm/RN spoke with patients nurse dorie and she is doing a Rapid Covid test on the patient. Faxed PAS[facility], D/C order and signed medication list. Placed signed medication list and Original PAS[facility] into folder to go with patient to [facility], placed [facility] copy into scan folder on [facility] desk. CM gave patients nurse the report number at [facility]. [phone]. [facility] setting up transportation for patient at 2PM. Osiris Ray RN
[2020-07-29 12:05] LABS: COVID19 -Nasal RAPID Negative (Negative)
[2020-07-29] MEDS: INSULIN ASPART 100 UNIT/ML INSULN PEN SUBCUT (12:09)
--- NOTE | 2020-07-29 14:35 | PC.NURSE ---
SHIFT SUMMARY;/DC PATIENT REPORTED PAIN TO ABD AND CHRONIC LOW BACK PAIN 6-8/10 THROUGHOUT SHIFT. HE IS CONCERNED THAT THE VICODIN WORSENS HIS ABD PAIN AND IS RELUCTANT TO TAKE. HOWEVER HE DID HAVE AN EXTRA LONG FORMED BM WHICH WAS RELIEVING AND DID ACCEPT 2 TABS VICODIN THIS SHIFT WITH IMPROVED BACK PAIN. HE HAS SOB AT REST AND REQUIRES 2L/NC TO KEEP SATS 92-94%. LUNGS DIM THROUGHOUT AND ABSENT TO RLL. DR BERGERON UPDATED OF SAME DURING ROUNDS. REPORT CALLED TO CHICHO AT [facility] WITH ALL QUESTIONS ANSWERED TO SATISFACTION. PACKET SENT WITH TRANSPORT STAFF. IV DC'D INTACT. PATIENT LEFT BY WC WITH 2L/NC PORTABLE TAKE WITH ALL BELONGINGS.
--- NOTE | 2020-07-29 14:45 | PT-IP ANOTE ---
Pt. just discharged from the facility and unable to see for PT tx. per PEDIATRIC PHYSIATRIST this morning, pt refused PT.
--- NOTE | 2020-07-29 15:13 | DS_ITS ---
History of Present Illness History of Present Illness Chief complaint: malignant neoplasm of bronchus or lunch Discharge Providers Provider Discharge Date: 07/29/20 Primary care physician: Rashaad Bolivar MD Discharge provider: Stepan Mera MD Exam Vital Signs (past 8 hours): Oxygen Flow Rate 4 Discharge Assessment & Plan Assessment and Plan Assessment: Attest that patient had non ST elevated enzymes consistent with a possible type 2 myocardial infarction, associated with acute respiratory failure Discharge Plan Orders Other Ambulatory Orders: Oncology Referral (Schedule) Timeframe: 1 Week Facility: [facility] - Location: Oncology Ordered By: Aline Bermudez Prescriptions Prescriptions: No Action Combivent Respimat 20-100 mcg/actuation mist 2 puff inhalation QID Qty: 12 RF: 3 albuterol sulfate [ProAir HFA] 90 mcg/actuation HFA aerosol inhaler 2 puff inhalation Q2-3H PRN (Reason: shortness of breath or wheezing) Qty: 17 RF: 5 diltiazem HCl [Cardizem CD] 240 mg Capsule,Extended Release 24hr 240 mg PO DAILY Qty: 30 RF: 1 polyethylene glycol 3350 17 gram Powder In Packet 17 gram PO DAILY Qty: 30 RF: 1 prednisone 10 mg Tablet 30 mg PO BID Qty: 60 RF: 0 lorazepam 1 mg tablet 1 mg PO TID PRN (Reason: dyspnea) Qty: 30 RF: 0 omeprazole 40 mg capsule,delayed release(DR/EC) 40 mg PO BID Qty: 60 RF: 0 hydrocodone-acetaminophen [[place]] 5-325 mg tablet 1 - 2 tab PO Q4HP PRN (Reason: pain in back) Qty: 90 RF: 0 Signed By:<Electronically signed by Stepan Mera MD>08/14/20 [id number]
== END 2020-07-29 14:15 | DRG 190 ==
LOC: ED 16:15 → AC 16:29
PROVIDERS: Family Medicine; Student in an Organized Health Care Education/Training Program; Admitting Provider Internal Medicine; Emergency Provider Emergency Medicine; PCP Internal Medicine; Referring Provider Emergency Medicine; Visit Provider Internal Medicine
DX: J44.1 Chronic obstructive pulmonary disease with (acute) exacerbation (principal); I21.A1 Myocardial infarction type 2; J96.01 Acute respiratory failure with hypoxia; C34.91 Malignant neoplasm of unspecified part of right bronchus or lung; C78.7 Secondary malignant neoplasm of liver and intrahepatic bile duct; C78.2 Secondary malignant neoplasm of pleura; C79.89 Secondary malignant neoplasm of other specified sites; N17.9 Acute kidney failure, unspecified; I48.0 Paroxysmal atrial fibrillation; J44.0 Chronic obstructive pulmonary disease with (acute) lower respiratory infection; I48.91 Unspecified atrial fibrillation; R73.9 Hyperglycemia, unspecified; G89.4 Chronic pain syndrome; F15.90 Other stimulant use, unspecified, uncomplicated; I10 Essential (primary) hypertension; E87.5 Hyperkalemia; K59.00 Constipation, unspecified; R11.0 Nausea; F17.210 Nicotine dependence, cigarettes, uncomplicated; Z11.59 Encounter for screening for other viral diseases; Z66 Do not resuscitate
CPT/HCPCS: 36415; 36600; 71046; 71260; 74176; 74177; 76705; 80048; 80053; 80076; 82550; 82805; 82962; 83605; 83880; 84132; 84145; 84484; 85025; 87040; 87070; 87205; 87635; 93005; 93010; 93306; 94150; 94640; 94667; 94760; 94762; 96365; 96375; 97110; 97116; 97162; 97530; 99223; 99233; 99238; 99285; J0610; J0696; J1650; J1940; J2060; J2270; J2930; J7613

== ENCOUNTER → 2020-08-07 14:43 | Oncology outpatient (ONC) | payer MEDICARE, MEDICAID, SELFPAY ==
[2020-07-21 18:14] VITALS: BMI 36.0
[2020-08-07 16:19] VITALS: BP 159/93; PULSE 96; RESP 22; TEMP 36.9; O2SAT 96
--- NOTE | 2020-08-07 16:24 | P.CONONC_ITS ---
History of Present Illness - Data of Consult Patient: new to practice Consult date: 08/07/20 Requesting Physician: Rashaad Bolivar MD Primary Care Provider: Rashaad Bolivar MD - Consult Narrative Reason for consult: Metastatic right lung cancer Narrative: Meño Schilling is a 64 year old male with medical comorbidities most notable for chronic obstructive pulmonary disease, current active heavy smoker, essential hypertension, iatrogenic cushingoid features, lower back pain, and right bundle branch block as well as one episode of atrial fibrillation. Patient recently was hospitalized on 07/21/2020 for COPD exacerbation with possible pneumonia at [facility]. On admission, CT chest abdomen and pelvis revealed a large right perihilar pulmonary mass, small right pleural effusion, mild pleural nodularity, enlarged right hilar and right mediastinal lymph nodes, multiple large hypoattenuating masses throughout the liver and moderate to severe centrilobular and paraseptal emphysema. According to patient and patient's family members (brother and [id number]), biopsies of the lung versus liver were discussed with the patient while the patient was in the hospital. After discharge from the hospital on 07/28/2020, patient was sent to [facility] and [facility]. According to patient's brother, patient continued to smoke and did not follow the recommendations from the rehab center. Patient was brought in today for consultation regarding the newly found lung mass and liver metastasis. He is wearing nasal cannula oxygen at 4 liters/minute. He is severely short of breath. No fever. He is not able to finish a full sentence. He is not able to sit still and is not able to lie flat. According to patient's brother, he also noticed that the patient has developed swelling of the face as well as swelling of the lower extremities. Patient is complaining of lot of abdominal pain and discomfort with nausea. Patient has been tested multiple times for COVID-19 which were negative up to now. CC: Aline Bermudez MD Patient reports pain?: Yes Home Medications and Allergies Home Medications Medication Instructions Recorded Confirmed Type albuterol sulfate 90 mcg/actuation 2 puff INHALATION Q2-3H PRN #17 03/13/20 07/21/20 Rx aerosol inhaler gram ipratropium 20 mcg-albuterol 100 2 puff INHALATION QID #12 gram 03/13/20 07/21/20 Rx mcg/actuation mist for inhalation diltiazem HCl [Cardizem CD] 240 mg PO DAILY #30 cap 07/27/20 Rx lorazepam 1 mg PO TID PRN #30 tab 07/27/20 Rx polyethylene glycol 3350 17 gram PO DAILY #30 each 07/27/20 Rx prednisone 30 mg PO BID #60 tab 07/27/20 Rx hydrocodone-acetaminophen [[place]] 1 - 2 tab PO Q4HP PRN #90 tab 07/28/20 Rx omeprazole 40 mg PO BID #60 cap 07/28/20 Rx Allergies Allergy/AdvReac Type Severity Reaction Status Date / Time No Known Drug Allergies Allergy Unknown Verified 07/21/20 12:39 [NO KNOWN DRUG ALLERGIES] Medical History - Medical, Surgical, Family History Medical History: Medical History (Last Reviewed 07/21/20 @ 19:18 by Alicia Davis DO) Body mass index (BMI) of 36.0 to 36.9 in adult Onset Date: 08/11/17 Chronic obstructive pulmonary disease Onset Date: 06/04/16 Current smoker Onset Date: 02/17/17 Essential hypertension Onset Date: 06/19/11 Hepatic metastases Iatrogenic cushingoid features Onset Date: 04/18/17 Low back pain without sciatica Onset Date: 07/20/15 Lung cancer Right bundle branch block Family History: Family History (Last Reviewed 07/21/20 @ 19:18 by Alicia Davis DO) Father Congestive heart failure Sister CAD (coronary artery disease) - Social History Smoking Status: Current every day smoker Exam Vital signs: Last Vital Signs Temp 98.4 F 08/07/20 16:19 Pulse 96 H 08/07/20 16:19 Resp 22 08/07/20 16:19 BP 159/93 H 08/07/20 16:19 Pulse Ox 96 08/07/20 16:19 - Constitutional positive moderate distress, positive obese, positive chronically ill appearing, positive diaphoretic, positive disheveled, positive agitated - Routine HEENT Exam Head: Present: normocephalic, atraumatic, cushingoid faces, facial swelling Eye: Present: EOMI, PERRL, normal accommodation. Absent: conjunctival icterus, scleral injection - Routine Neck Exam Present: supple, swelling. Absent: thyromegaly - Routine Chest/Breast/Axilla Exam Axillae: Absent: lymphadenopathy - Routine Respiratory Exam Present: decreased breath sounds, accessory muscle use, prolonged expiratory phase, distant breath sounds, diminished air movement - Routine Cardiovascular Exam Present: RRR, S1, S2. Absent: murmur, gallop - Routine Abdominal Exam Present: soft, tenderness, distended - Routine Extremities Exam Present: edema - Routine Neurological Exam Present: alert, oriented X3, CN II-XII intact. Absent: sensory deficit, motor deficit - Routine Psychiatric Exam Present: normal affect Results - Labs Laboratory Last Values Ammonia 38 umol/L (9-30) H 08/07/20 17:05 - Imaging Additional studies: Procedures Other endoscopy of small intestine (08/07/11) Other fasciectomy of hand (08/21/12) Relaxation of scar or web contracture of skin (08/21/12) [Endoscopic] polypectomy of rectum (08/07/11) Assessment and Plan (1) Metastatic lung cancer (metastasis from lung to other site) Mrs. Rayray Schilling is a 64-year-old gentleman with heavy smoking history and severe COPD who was recently found to have right lung mass, mediastinum lymphadenopathy and multiple large liver metastasis highly suspicious for primary lung cancer with metastasis. Patient is currently on oxygen 28/04. He has a poor performance status of about 3. He is accompanied by his brother and his [id number] to the clinic. In addition to end stage COPD, patient also has history of hypertension. Patient currently is in [facility], but has not been able to follow the recommendations for respiratory rehab. I talked with patient and patient's family (brother and sister renal) that based on the information, he most likely has a metastatic lung cancer. It is a stage IV given the evidence of distant metastasis (liver). I talked with them that for stage IV lung cancer it is generally speaking not a curable disease. The treatment will depend on the histological types and molecular features. Usually biopsies are indicated, either lung biopsy or liver biopsy. However, patient's current condition makes the both procedures very challenging and may be potentially risky. I am recommending a liquid biopsy. I explained to the patient and his family that liquid biopsy is via the peripheral blood to evaluate the presence of abnormal tumor cells DNA. It will provide information regarding the molecular phenotypes. However it is not as sensitive and as informative as tissue diagnosis. I talked with them that the liquid biopsy may provide information about molecular targets. If it is positive, he may be a good candidate for targeted therapy. Next, I talked with them that at present, I think the most important is to optimized management of his other medical conditions especially pulmonary COPD as well as possible cardiac issues. Patient currently is on steroids, nebulizer, inhalers,etc. I talked with the patient to follow-up with his primary care provider as well as rehab center physicians for further management of these medical co-morbidities. Today, I talked with the patient that for metastatic lung cancer, the treatment would include chemotherapy and/or immunotherapy. Given patient's current condition, I do not think he is a good candidate for chemotherapy. As far as immunotherapy is concerned, we have to wait for possible tissue diagnosis. I talked with them that the patent's prognosis is guarded. The life span probably is within months. I think patient should consider seriously option of palliative/hospice care. I talked with them that any active treatment at this point probably causes more harm than benefit. On the contrary, palliative and hospice care have been shown to help people live better time and even prolong survival survival. They all voiced understanding. Plan: Liquid biopsy, [facility], I will follow up the results. Recommend palliative and hospice care consult.
[2020-08-07 17:42] LABS: Ammonia (NH3) 38 umol/L (9-30)
--- NOTE | 2020-08-08 09:26 | PC.NURSE ---
[facility]: BLOOD WAS DRAWN FOR THIS TEST BY [facility], REQUISITION SIGNED BY BROTHER WHO HAS MPOA, COMPLETED KIT TAKEN TO LAB AT 630 PM TO BE DELIVERED TO [facility] TOMORROW, COPY OF REQUISITION GIVEN TO MR FOR SCANNING.
--- NOTE | 2020-08-08 13:50 | ONC.MSW ---
Late Entry: Visit 08/07/20 Description: Initial F/F Visit Activity: COVERAGE ANALYST was able to meet with pt/family prior to their initial consult visit with Dr. Bermudez. Pt is single, his brother present with him today is DPOA. Pt was brought over by wheelchair by family from [facility], where he's receiving post hospitalization respiratory rehab. Pt presented as extremely uncomfortable, unable to sit still, severely short of breath, complaining of pain, and unable to speak more than a few words at a time without severe discomfort. Family presented as upset and defensive, feeling angry about what they perceived as poor care and pt falling through the cracks since even prior to his hospitalization, feeling that pt's PCP did not adequately treat patient for rapidly worsening COPD and overall decompensation of functioning. Pt is being seen in Oncology for probable metastatic lung cancer, late stage. COVERAGE ANALYST provided teaching and answered many questions of the family. Discussed his Medicaid status, family's understanding of disease status and prognostic awareness. They feel angry that they should have had more answers by now. Pt did not receive his bronchoscopy biopsy referral to [facility], which was part of the d/c plan as discussed by his own PCP, Dr. Bolivar. The referral was not done, and he is too symptomatic now to be able to tolerate it. Unfortunately, this is the exact procedure that Oncology needed to determine any treatment options. Family were again angry about this. COVERAGE ANALYST did discuss support services and resources, and assured them of the ongoing goal of assisting them with each step moving forward in his care plan. Plan: Due to time constraints, COVERAGE ANALYST will f/u with them again tomorrow re: next steps and needs.
--- NOTE | 2020-08-08 14:02 | ONC.MSW ---
T/C Attempted to call family to discuss needs and f/u from yesterday's visit. Unable to leave a message, no voicemail, and only 1-contact number. Will attempt again tomorrow.
--- NOTE | 2020-08-09 11:49 | ONC.MSW ---
Description: Hospice Info Visit Referral Activity: TAXICAB DRIVER faxed clinicals and referral to [facility], requesting info visit. Called and updated their referral center on pt's medical status and role of Oncology.
--- NOTE | 2020-08-14 17:52 | PM.DS.1 ---
History of Present Illness History of Present Illness Chief complaint: malignant neoplasm of bronchus or lunch Discharge Providers Provider Discharge Date: 07/29/20 Primary care physician: Rashaad Bolivar MD Discharge provider: Stepan Mera MD Exam Vital Signs (past 8 hours): Oxygen Flow Rate 4 Discharge Assessment & Plan Assessment and Plan Assessment: Attest that patient had non ST elevated enzymes consistent with a possible type 2 myocardial infarction, associated with acute respiratory failure Discharge Plan Orders Other Ambulatory Orders: Oncology Referral (Schedule) Timeframe: 1 Week Facility: [facility] - Location: Oncology Ordered By: Aline Bermudez Prescriptions Prescriptions: No Action Combivent Respimat 20-100 mcg/actuation mist 2 puff inhalation QID Qty: 12 RF: 3 albuterol sulfate [ProAir HFA] 90 mcg/actuation HFA aerosol inhaler 2 puff inhalation Q2-3H PRN (Reason: shortness of breath or wheezing) Qty: 17 RF: 5 diltiazem HCl [Cardizem CD] 240 mg Capsule,Extended Release 24hr 240 mg PO DAILY Qty: 30 RF: 1 polyethylene glycol 3350 17 gram Powder In Packet 17 gram PO DAILY Qty: 30 RF: 1 prednisone 10 mg Tablet 30 mg PO BID Qty: 60 RF: 0 lorazepam 1 mg tablet 1 mg PO TID PRN (Reason: dyspnea) Qty: 30 RF: 0 omeprazole 40 mg capsule,delayed release(DR/EC) 40 mg PO BID Qty: 60 RF: 0 hydrocodone-acetaminophen [[place]] 5-325 mg tablet 1 - 2 tab PO Q4HP PRN (Reason: pain in back) Qty: 90 RF: 0
--- NOTE | 2020-08-15 13:31 | ONC.MSW ---
*Sent bereavement card.
== END ==
LOC: ONC 14:44
PROVIDERS: PCP Internal Medicine; Referring Provider Internal Medicine; Visit Provider Internal Medicine Hematology & Oncology
DX: C34.01 Malignant neoplasm of right main bronchus (principal); C78.7 Secondary malignant neoplasm of liver and intrahepatic bile duct; J44.9 Chronic obstructive pulmonary disease, unspecified; I10 Essential (primary) hypertension; I45.10 Unspecified right bundle-branch block; F17.200 Nicotine dependence, unspecified, uncomplicated; Z99.81 Dependence on supplemental oxygen
CPT/HCPCS: 82140; 99204; 99214

== ENCOUNTER → 2020-08-09 12:57 | Outpatient (ROUT) | payer MEDICARE, MEDICAID, SELFPAY ==
[2020-07-21 18:14] VITALS: BMI 36.0
[2020-08-09 13:10] LABS: Ammonia (NH3) 13 umol/L (9-30)
== END ==
PROVIDERS: PCP Internal Medicine; Visit Provider Nurse Practitioner
DX: J96.01 Acute respiratory failure with hypoxia (principal); D49.1 Neoplasm of unspecified behavior of respiratory system
CPT/HCPCS: 82140